=== PATIENT | male | born 1940 | race Caucasian/White ===

== ENCOUNTER 2016-10-15 14:43 | Outpatient (CLI) | payer MEDICARE | END 2016-10-15 14:44 | disposition home or self-care (01) | DX: E23.0 Hypopituitarism (principal) ==

== ENCOUNTER 2016-11-15 11:17 | Outpatient (CLI) | payer MEDICARE | END 2016-11-15 11:18 | disposition home or self-care (01) | DX: E23.0 Hypopituitarism (principal) ==

== ENCOUNTER 2016-12-28 09:03 | Observation (INO) | payer MEDICARE ==
[2016-12-28] MEDS ORDERED: ASPIRIN CHEW 81 MG TABLET PO STA (13:51)
[2016-12-28] MEDS ORDERED: ASPIRIN CHEW 81 MG TABLET ONE (14:01)
[2016-12-28] MEDS ORDERED: HYDROcod/ACETAM 10 MG/325 MG TABLET PO PRN (16:41)
[2016-12-28] MEDS ORDERED: ACETAMINOPHEN 325 MG TABLET PO PRN (16:41)
[2016-12-28] MEDS ORDERED: ONDANSETRON ODT 4 MG TABLET TL PRN (16:41)
[2016-12-28] MEDS ORDERED: SODIUM CHLORIDE FLUSH 0.9% 10 ML SYRINGE IVP PRN (16:41)
[2016-12-28] MEDS ORDERED: GADOBUTROL 7.5 MMOL/7.5 ML VIAL IVP ONE (17:47)
[2016-12-28] MEDS: SODIUM CHLORIDE 0.9% 1,000 ML IV SCH (18:12)
[2016-12-28] MEDS ORDERED: FAMOTIDINE 20 MG TABLET PO SCH (21:00)
[2016-12-28] MEDS: SODIUM CHLORIDE FLUSH 0.9% 10 ML SYRINGE IVP SCH (22:09)
[2016-12-29] MEDS: SODIUM CHLORIDE 0.9% 1,000 ML IV SCH (04:00)
[2016-12-29] MEDS: SODIUM CHLORIDE FLUSH 0.9% 10 ML SYRINGE IVP SCH (05:58)
[2016-12-29] MEDS ORDERED: LEVOTHYROXINE 125 MCG TABLET PO SCH ×2 (07:00→09:00)
[2016-12-29] MEDS ORDERED: HYDROCORTISONE 10 MG TABLET PO SCH (08:00)
[2016-12-29] MEDS ORDERED: MULTIVITAMIN TABLET PO SCH (08:00)
[2016-12-29] MEDS ORDERED: ENOXAPARIN 40 MG/0.4 ML SYRINGE SUBQ SCH (09:00)
[2016-12-29] MEDS ORDERED: POLYETHYLENE GLYCOL 3350 17 GM PACKET PO SCH (09:00)
[2016-12-29] MEDS ORDERED: LOSARTAN 50 MG TABLET PO SCH (09:00)
[2016-12-29] MEDS ORDERED: MULTIVITAMIN PO SCH (09:00)
== END 2016-12-29 09:30 | disposition home or self-care (01) ==
DX: E05.80 Other thyrotoxicosis without thyrotoxic crisis or storm (principal); T38.1X5A Adverse effect of thyroid hormones and substitutes, initial encounter; E27.40 Unspecified adrenocortical insufficiency; R42 Dizziness and giddiness; E86.0 Dehydration; E87.6 Hypokalemia; E03.9 Hypothyroidism, unspecified; I15.2 Hypertension secondary to endocrine disorders; E78.5 Hyperlipidemia, unspecified; M15.9 Polyosteoarthritis, unspecified; F32.9 Major depressive disorder, single episode, unspecified; F17.211 Nicotine dependence, cigarettes, in remission; Z85.820 Personal history of malignant melanoma of skin; Z92.21 Personal history of antineoplastic chemotherapy; Z92.3 Personal history of irradiation; Z79.899 Other long term (current) drug therapy; Z87.898 Personal history of other specified conditions
CPT/HCPCS: 36415; 70450; 70553; 71020; 76536; 80053; 81003; 82533; 83690; 83735; 84403; 84443; 84484; 85025; 85610; 85730; 93005; 93010; 93880; 99285; A9270; A9585; G0378

== ENCOUNTER 2017-07-18 12:45 | Outpatient (CLI) | payer MEDICARE ==
[2017-07-18 13:03] LABS: HCT - HEMATOCRIT 39.4 % (42.0-52.0); HGB - HEMOGLOBIN 13.4 g/dL (14.0-18.0)
[2017-07-18 14:45] LABS: PSA TOTAL 2.4 ng/mL (0.000-2.000)
== END 2017-07-18 12:46 | disposition home or self-care (01) ==
LOC: LAB 12:45
PROVIDERS: ATTEND Internal Medicine Endocrinology, Diabetes & Metabolism
DX: E29.1 Testicular hypofunction (principal)
CPT/HCPCS: 36415; 84153; 84403; 85014; 85018

== ENCOUNTER 2017-10-01 13:04 | Outpatient (CLI) | payer MEDICARE ==
[2017-10-01 13:42] LABS: BASOPHILS # (AUTO) 0.1 10^3/uL (0.0-0.1); BASOPHILS % (AUTO) 0.8 %; EOSINOPHILS # (AUTO) 0.1 10^3/uL (0.0-0.7); EOSINOPHILS % (AUTO) 1.6 %; HGB - HEMOGLOBIN 13.9 g/dL (14.0-18.0); LYMPHOCYTES % (AUTO) 29.5 %; MEAN CORPUSCULAR HEMOGLOBIN 32.5 pg (27.0-31.0); MEAN CORPUSCULAR HGB CONC 34.6 g/dL (32.0-36.0); MEAN CORPUSCULAR VOLUME 93.8 fL (80.0-94.0); MEAN PLATELET VOLUME 6.8 fL (7.4-11.4); MONOCYTES # (AUTO) 0.4 10^3/uL (0.0-1.0); MONOCYTES % (AUTO) 5.9 %; NEUTROPHILS # (AUTO) 4.2 10^3/uL (1.5-6.6); NEUTROPHILS % (AUTO) 62.2 %; PLT - PLATELET COUNT 174 10^3/uL (130-450); RED BLOOD COUNT 4.27 10^6/uL (4.70-6.10); RED CELL DISTRIBUTION WIDTH 13.5 % (12.0-15.0); WHITE BLOOD COUNT 6.8 x10^3/uL (4.8-10.8)
[2017-10-01 14:22] LABS: CALCIUM 8.9 mg/dL (8.5-10.3)
[2017-10-01 14:36] LABS: PSA TOTAL 2.29 ng/mL (0.000-2.000)
[2017-10-01 14:40] LABS: THYROID STIMULATING HORMONE < 0.08 uIU/mL (0.34-5.60)
[2017-10-01 14:43] LABS: FREE T4 (FREE THYROXINE) 1.25 ng/dL (0.58-1.64)
== END 2017-10-01 13:05 | disposition home or self-care (01) ==
LOC: LAB 13:04
PROVIDERS: ATTEND Internal Medicine Endocrinology, Diabetes & Metabolism
DX: E23.0 Hypopituitarism (principal)
CPT/HCPCS: 36415; 80048; 84153; 84403; 84439; 84443; 85025

== ENCOUNTER 2018-01-06 11:04 | Outpatient (CLI) | payer MEDICARE ==
[2018-01-06 11:53] LABS: BASOPHILS # (AUTO) 0.1 10^3/uL (0.0-0.1); BASOPHILS % (AUTO) 0.9 %; EOSINOPHILS # (AUTO) 0.2 10^3/uL (0.0-0.7); EOSINOPHILS % (AUTO) 3.7 %; HGB - HEMOGLOBIN 14.1 g/dL (14.0-18.0); LYMPHOCYTES # (AUTO) 3.5 10^3/uL (1.5-3.5); LYMPHOCYTES % (AUTO) 55.8 %; MEAN CORPUSCULAR HEMOGLOBIN 32.4 pg (27.0-31.0); MEAN CORPUSCULAR VOLUME 95.4 fL (80.0-94.0); MEAN PLATELET VOLUME 6.9 fL (7.4-11.4); MONOCYTES # (AUTO) 0.4 10^3/uL (0.0-1.0); MONOCYTES % (AUTO) 6.5 %; NEUTROPHILS # (AUTO) 2.1 10^3/uL (1.5-6.6); NEUTROPHILS % (AUTO) 33.1 %; PLT - PLATELET COUNT 175 10^3/uL (130-450); RED BLOOD COUNT 4.36 10^6/uL (4.70-6.10); RED CELL DISTRIBUTION WIDTH 13.7 % (12.0-15.0); WHITE BLOOD COUNT 6.2 x10^3/uL (4.8-10.8)
[2018-01-06 12:58] LABS: THYROID STIMULATING HORMONE < 0.08 uIU/mL (0.34-5.60)
[2018-01-06 13:00] LABS: FREE T4 (FREE THYROXINE) 1.35 ng/dL (0.58-1.64)
== END 2018-01-06 11:05 | disposition home or self-care (01) ==
LOC: LAB 11:04
PROVIDERS: ATTEND Internal Medicine Endocrinology, Diabetes & Metabolism
DX: E23.0 Hypopituitarism (principal)
CPT/HCPCS: 36415; 84439; 84443; 85025

== ENCOUNTER 2018-01-21 10:20 | Emergency (ER) | payer MEDICARE ==
[2018-01-21 12:05] LABS: BASOPHILS % (AUTO) 0.7 %; EOSINOPHILS # (AUTO) 0.2 10^3/uL (0.0-0.7); EOSINOPHILS % (AUTO) 3.4 %; HGB - HEMOGLOBIN 13.8 g/dL (14.0-18.0); LYMPHOCYTES # (AUTO) 3.1 10^3/uL (1.5-3.5); LYMPHOCYTES % (AUTO) 50.5 %; MEAN CORPUSCULAR HEMOGLOBIN 32.6 pg (27.0-31.0); MEAN CORPUSCULAR HGB CONC 34.7 g/dL (32.0-36.0); MEAN CORPUSCULAR VOLUME 94.2 fL (80.0-94.0); MEAN PLATELET VOLUME 6.9 fL (7.4-11.4); MONOCYTES # (AUTO) 0.4 10^3/uL (0.0-1.0); MONOCYTES % (AUTO) 7.1 %; NEUTROPHILS # (AUTO) 2.3 10^3/uL (1.5-6.6); NEUTROPHILS % (AUTO) 38.3 %; PLT - PLATELET COUNT 170 10^3/uL (130-450); RED BLOOD COUNT 4.21 10^6/uL (4.70-6.10); RED CELL DISTRIBUTION WIDTH 13.7 % (12.0-15.0); WHITE BLOOD COUNT 6.1 x10^3/uL (4.8-10.8)
--- NOTE | 2018-01-21 12:11 | ED Physician Documentation ---
PD HPI HEENT - Stated complaint Stated Complaint: VERTIGO - Chief complaint Chief Complaint: General - History obtained from History obtained from: Patient - History of Present Illness Timing - onset: Today (had some brief feeling of vertigo when getting up from bed the past couple of days. Today he looked down and then up suddenly and felt abrupt onset of severe vertigo which persisted. He did not have headache and no other symptoms. Does have history of Melanoma without mets. No tinnitus.) Timing - details: Abrupt onset, Still present (lessened with holding still, worse with head movement.), Waxing and waning Location: No: Right ear, Left ear, Throat Associated symptoms: Congestion (some mild congestion seasonally). No: Fever, Rhinorrhea, Facial swelling Similar symptoms before: Has not had sx before Recently seen: Not recently seen Review of Systems Constitutional: denies: Fever Eyes: denies: Loss of vision, Decreased vision Ears: denies: Loss of hearing, Ear pain, Drainage/discharge, Tinnitus/ringing Nose: reports: Congestion, Sinus pressure / pain (mild). denies: Rhinorrhea / runny nose Throat: denies: Sore throat Cardiac: denies: Chest pain / pressure, Palpitations Respiratory: denies: Dyspnea, Cough GI: reports: Nausea (with the marked vertigo, but lessened now), Vomiting. 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 ) GI: None : None HEENT: None Psych: Depression Musculoskeletal: Osteoarthritis Derm: Other (melanoma in the past, with local extension beyond margins and had chemo for it. ) - Past Surgical History Past Surgical History: Yes General: Colonoscopy HEENT: Tonsil/Adenoidectomy Derm: Skin cancer surgery - Present Medications Home Medications: Ambulatory Orders Medication Instructions Recorded Confirmed Multivitamin [Multivitamins] 1 cap PO DAILY 05/10/15 10/01/17 Testosterone 5 gm TD ONCE 10/02/16 10/01/17 Cholecalciferol [Vitamin D3] 1 tab ORAL DAILY 12/28/16 10/01/17 Hydrocortisone [Cortef] 20 mg PO DAILYWM tablet 12/29/16 10/01/17 Levothyroxine [Synthroid] 112 mcg PO QDAC #30 tablet NS 12/29/16 10/01/17 Dexamethasone [Decadron] 4 mg PO DAILY #5 tablet 01/21/18 Meclizine [Antivert] 25 mg PO Q6H PRN #30 tablet 01/21/18 - Allergies Allergies/Adverse Reactions: Allergies Allergy/AdvReac Type Severity Reaction Status Date / Time No Known Drug Allergies Allergy Verified 01/21/18 10:40 - Social History Does the pt smoke?: No Smoking Status: Never smoker Does the pt drink ETOH?: Yes Does the pt have substance abuse?: No - Immunizations Immunizations are current?: Yes - POLST Patient has POLST: No PD ED PE NORMAL - Vitals Vital signs reviewed: Yes - General General: Alert and oriented X 3, No acute distress, Well developed/nourished - HEENT HEENT: Atraumatic, PERRL, EOMI (with some nystagmus to the right), Ears normal, Moist mucous membranes, Pharynx benign - Neck Neck: Supple, no meningeal sign, No bony TTP, No adenopathy, No JVD, No bruit - Cardiac Cardiac: RRR, No murmur - Respiratory Respiratory: Clear bilaterally - Abdomen Abdomen: Soft, Non tender - Back Back: No CVA TTP - Derm Derm: Normal color, Warm and dry, No rash - Extremities Extremities: No tenderness to palpate, Normal ROM s pain - Neuro Neuro: Alert and oriented X 3, 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, No motor deficit, No sensory deficit, Normal speech, Other Eye Opening: Spontaneous Motor: Obeys Commands Verbal: Oriented GCS Score: 15 Results - Vitals Vitals: Vital Signs - 24 hr 01/21/18 01/21/18 01/21/18 12:56 15:50 17:50 Temperature 36.6 C Heart Rate 59 L 70 84 Respiratory 16 18 18 Rate Blood Pressure 140/77 H 157/88 H 156/88 H O2 Saturation 100 100 99 Oxygen O2 Source Room air - Labs Labs: Laboratory Tests 01/21/18 01/21/18 01/21/18 11:48 11:57 11:57 WBC 6.1 RBC 4.21 L Hgb 13.8 L Hct 39.7 L MCV 94.2 H MCH 32.6 H MCHC 34.7 RDW 13.7 Plt Count 170 MPV 6.9 L Neut # 2.3 Lymph # 3.1 [place] # 0.4 Eos # 0.2 Baso # 0.0 Absolute Nucleated RBC 0.00 Nucleated RBC % 0.1 Sodium 139 Potassium 4.0 Chloride 105 Carbon Dioxide 28 Anion Gap 6.0 BUN 19 Creatinine 0.9 Estimated GFR (MDRD) 82 L Glucose 89 Calcium 8.6 Phosphorus 2.7 Magnesium 2.1 Total Bilirubin 0.9 AST 25 ALT 19 Alkaline Phosphatase 65 Total Protein 6.3 L Albumin 3.8 Globulin 2.5 Albumin/Globulin Ratio 1.5 Lipase 27 Urine Color YELLOW Urine Clarity CLEAR Urine pH 5.5 Ur Specific Benedict 1.020 Urine Protein NEGATIVE Urine Glucose (UA) NEGATIVE Urine Ketones NEGATIVE Urine Occult Blood NEGATIVE Urine Nitrite NEGATIVE Urine Bilirubin NEGATIVE Urine Urobilinogen 0.2 (NORMAL) Ur Leukocyte Esterase NEGATIVE Ur Microscopic Review NOT INDICATED Urine Culture Comments NOT INDICATED PD MEDICAL DECISION MAKING - ED course Complexity details: re-evaluated patient (long wait for MRI but was important as CT would not have excluded intracranial pathology in posterior fossa/ cerebellum area. MRI was good, so confirmed peripheral vertigo. ), considered differential (seems likely peripheral vertigo but does have history of melanoma and mets would be concern, as would posterior CVA, for which MRI would be the most accurate. ), d/w patient Departure - Departure Disposition: 01 Home, Self Care Clinical Impression: Dizziness Vertigo, peripheral Qualifiers: Laterality: unspecified laterality Qualified Code(s): H81.399 - Other peripheral vertigo, unspecified ear Clinical Impression: (Ruled Out): Intracranial mass Condition: Stable Record reviewed to determine appropriate education?: Yes Instructions: ED Vertigo Unspecified Follow-Up: Milton Leigh MD [Primary Care Provider] - Prescriptions: Dexamethasone [Decadron] 4 mg PO DAILY #5 tablet Meclizine [Antivert] 25 mg PO Q6H PRN #30 tablet PRN Reason: Vertigo Comments: Your brain MRI is normal so no signs of stroke, tumors, bleeding, other abnormalities. This reinforces that the vertigo is from the inner ear. Use Decadron anti-inflammatory for the next several days for presumed inflammation of the inner ear. Add meclizine every 6 hours if needed for dizziness itself which is a motion sickness medicine. Recheck if not improving over the next few days. Discharge Date/Time: 01/21/18 18:01
[2018-01-21 12:21] LABS: ALBUMIN 3.8 g/dL (3.2-5.5); ALBUMIN/GLOBULIN RATIO 1.5 (1.0-2.2); BILIRUBIN,TOTAL 0.9 mg/dL (0.2-1.0); CALCIUM 8.6 mg/dL (8.5-10.3); CREATININE 0.9 mg/dL (0.6-1.2); MAGNESIUM 2.1 mg/dL (1.7-2.8); PHOSPHORUS 2.7 mg/dL (2.5-4.6); TOTAL PROTEIN 6.3 g/dL (6.7-8.2)
[2018-01-21 12:34] LABS: BILIRUBIN,URINE NEGATIVE (NEGATIVE); GLUCOSE, URINE (UA) NEGATIVE (NEGATIVE); KETONES,URINE (UA) NEGATIVE (NEGATIVE); LEUKOCYTE ESTERASE, URINE NEGATIVE (NEGATIVE); NITRITE,URINE NEGATIVE (NEGATIVE); OCCULT BLOOD,URINE NEGATIVE (NEGATIVE); PH,URINE 5.5 PH (5.0-7.5); PROTEIN,URINE NEGATIVE (NEGATIVE); UROBILINOGEN,URINE 0.2 (NORMAL) E.U./dL (NORMAL)
[2018-01-21 12:39] LABS: CLARITY,URINE CLEAR (CLEAR)
[2018-01-21] MEDS ORDERED: GADOBUTROL 7.5 MMOL/7.5 ML SYRINGE ONE (16:28)
[2018-01-21] MEDS ORDERED: GADOBUTROL 7.5 MMOL/7.5 ML SYRINGE IVP ONE (17:02)
--- NOTE | 2018-01-21 17:33 | MRI Report ---
EXAM: MRI BRAIN WITHOUT AND WITH CONTRAST EXAM DATE: 01/21/2018 05:13 PM. CLINICAL HISTORY: 77-year-old man with acute onset of vertigo today. Patient also has history of rina noma. COMPARISON: MRI on 12/28/2016. TECHNIQUE: Multiplanar, multisequence T1-weighted and fluid-sensitive MR sequences of the brain were performed. Sequences optimized for routine evaluation. Other: High-resolution axial images were acqui red through the internal auditory canals. IV Contrast: 7.5ML GADAVIST. FINDINGS: Parenchyma: No evidence of acute infarct on diffusion weighted sequence. The parenchyma demonstrates mild to moderate burden of nonspecific FLAIR hyperintensities in the deep cerebral and periventricula r white matter, similar to the 12/28/2016 MRI. The infratentorial parenchyma demonstrates normal sign al intensity on T1 and T2-weighted sequences. No evidence of prior hemorrhage on susceptibility weigh jaquelin sequence. No abnormal enhancement. Pituitary: Unremarkable. Ventricles and Extra-axial Spaces: Ventricles are symmetric and normal in size for age. Extra-axial s paces are unremarkable. No abnormal enhancement. Internal Auditory Canals: Patent without mass lesion or abnormal enhancement bilaterally. Cochleas an d vestibular apparatuses demonstrate normal fluid signal intensity without abnormal enhancement. No e vidence of semicircular canal dehiscence. Orbits: Unremarkable except for bilateral lens replacement surgery. Sinuses: Paranasal sinuses and mastoid air cells are clear. Major Vascular Flow Voids: Intact. Dural Venous Sinuses and Major Central Veins: Patent on post-contrast images. IMPRESSION: 1. No acute intracranial abnormality. Specifically, no evidence of acute infarct, hemorrhage, or mass lesion. No abnormal enhancement or hemorrhage to suggest metastatic disease. 2. 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 [facility] Referring Provider Line: [phone] SITE ID: [id number]
[2018-01-21 17:55] VITALS: BP 156/88
== END 2018-01-21 18:01 | disposition home or self-care (01) ==
LOC: ED 10:20
DX: H81.399 Other peripheral vertigo, unspecified ear (principal); I10 Essential (primary) hypertension; Z85.820 Personal history of malignant melanoma of skin
CPT/HCPCS: 36415; 70553; 80053; 81003; 83690; 83735; 84100; 85025; 93005; 99283; 99284; A9585; 81001; 87086

== ENCOUNTER 2018-07-06 13:15 | Emergency (ER) | payer MEDICARE ==
--- NOTE | 2018-07-06 14:02 | ED Physician Documentation ---
PD HPI DYSPNEA - Stated complaint Stated Complaint: SOA - Chief complaint Chief Complaint: Resp - History obtained from History obtained from: Patient, Family - History of Present Illness Timing - onset: Last night Timing - onset during: Sleep Timing - duration: Hours Timing - details: Abrupt onset, Still present Inciting event(s): Immobilization/travel Improved by: Rest Worsened by: Exertion Associated symptoms: Cough. 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 He was asleep last night when he was suddenly awakened by a flash of light and felt short of breath. He states that since that time he has been able to only sleep intermittently tossing and turning and when he is up and around he feels fatigued easily. He denies acute exertional dyspnea. Review of Systems Constitutional: denies: Fever Eyes: denies: Decreased vision Ears: denies: Ear pain Nose: denies: Rhinorrhea / runny nose, Congestion Throat: denies: Sore throat Cardiac: reports: Pedal edema (on right as usual). denies: Chest pain / pressure, Palpitations, Calf pain Respiratory: reports: Dyspnea, Cough. 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 ) GI: None : None HEENT: None Psych: Depression Musculoskeletal: Osteoarthritis Derm: Other (melanoma in the past, with local extension beyond margins and had chemo for it. ) - Past Surgical History Past Surgical History: Yes General: Colonoscopy HEENT: Tonsil/Adenoidectomy Derm: Skin cancer surgery - Present Medications Home Medications: Ambulatory Orders Medication Instructions Recorded Confirmed Multivitamin [Multivitamins] 1 cap PO DAILY 05/10/15 10/01/17 Testosterone 5 gm TD ONCE 10/02/16 10/01/17 Cholecalciferol [Vitamin D3] 1 tab ORAL DAILY 12/28/16 10/01/17 Hydrocortisone [Cortef] 20 mg PO DAILYWM tablet 12/29/16 10/01/17 Levothyroxine [Synthroid] 112 mcg PO QDAC #30 tablet NS 12/29/16 10/01/17 Aspirin 81 mg 07/06/18 - Allergies Allergies/Adverse Reactions: Allergies Allergy/AdvReac Type Severity Reaction Status Date / Time No Known Drug Allergies Allergy Verified 07/06/18 13:26 - Social History Does the pt smoke?: No Smoking Status: Never smoker Does the pt drink ETOH?: Yes Does the pt have substance abuse?: No - Immunizations Immunizations are current?: Yes - POLST Patient has POLST: No PD ED PE NORMAL - Vitals Vital signs reviewed: Yes (hypertensive mild ) - General General: Alert and oriented X 3, No acute distress, Well developed/nourished - HEENT HEENT: Atraumatic, PERRL, EOMI - Neck Neck: Supple, no meningeal sign - Cardiac Cardiac: RRR, No murmur - Respiratory Respiratory: No respiratory distress, Clear bilaterally - Abdomen Abdomen: Soft, Non tender - Back Back: No CVA TTP, No spinal TTP - Derm Derm: Normal color, Warm and dry, No rash - Extremities Extremities: No deformity, Other (There are scars to the right LE above and below the medial aspect of the knee where prior melanoma has been removed. There is no palpable cord and no pain to dorsiflexion of the foot . The right leg is slightly swollen in comparison to the left. 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, No motor deficit, No sensory deficit, Normal speech Eye Opening: Spontaneous Motor: Obeys Commands Verbal: Oriented GCS Score: 15 - Psych Psych: Normal mood, Normal affect Results - Vitals Vitals: Vital Signs - 24 hr 07/06/18 07/06/18 13:24 15:02 Temperature 36.8 C Heart Rate 78 75 Respiratory 18 16 Rate Blood Pressure 159/82 H 164/91 H O2 Saturation 100 100 Oxygen O2 Source Room air - Labs Labs: Laboratory Tests 07/06/18 07/06/18 07/06/18 14:10 14:10 14:10 WBC 6.7 RBC 3.86 L Hgb 12.8 L Hct 36.2 L MCV 93.8 MCH 33.3 H MCHC 35.5 RDW 13.4 Plt Count 154 MPV 6.4 L Neut # (Auto) 4.2 Lymph # (Auto) 1.6 [place] # (Auto) 0.5 Eos # (Auto) 0.3 Baso # (Auto) 0.1 Absolute Nucleated RBC 0.00 Nucleated RBC % 0.0 Sodium 136 Potassium 3.4 L Chloride 101 Carbon Dioxide 26 Anion Gap 9.0 BUN 23 H Creatinine 1.0 Estimated GFR (MDRD) 73 L Glucose 107 H Calcium 8.6 Total Bilirubin 0.8 AST 27 ALT 17 Alkaline Phosphatase 86 Troponin I < 0.04 B-Natriuretic Peptide Total Protein 6.4 L Albumin 3.8 Globulin 2.6 Albumin/Globulin Ratio 1.5 Lipase 33 07/06/18 14:10 WBC RBC Hgb Hct MCV MCH MCHC RDW Plt Count MPV Neut # (Auto) Lymph # (Auto) [place] # (Auto) Eos # (Auto) Baso # (Auto) Absolute Nucleated RBC Nucleated RBC % Sodium Potassium Chloride Carbon Dioxide Anion Gap BUN Creatinine Estimated GFR (MDRD) Glucose Calcium Total Bilirubin AST ALT Alkaline Phosphatase Troponin I B-Natriuretic Peptide 146 H Total Protein Albumin Globulin Albumin/Globulin Ratio Lipase - Rads (name of study) CT angio chest Radiology: Prelim report reviewed (Impression: 1. Negative for acute pulmonary embolism. 2 Clear lungs. 3 No other significant acute abnormality in the chest.), EMP read indepedently, See rad report PD MEDICAL DECISION MAKING - ED course Complexity details: reviewed old records, reviewed results, re-evaluated patient, considered differential, d/w patient ED course: 77-year-old male with a recent right hip replacement has developed a sudden episode last night with persistent sensation of shortness of breath at rest and on examination the patient appears well and a CT Nora of the chest is without evidence of abnormality within the chest. The patient is reassured at the bedside and is discharged home. Departure - Departure Disposition: Home, Self Care Clinical Impression: Dyspnea Qualifiers: Dyspnea type: other forms of dyspnea Qualified Code(s): R06.09 - Other forms of dyspnea Condition: Stable Instructions: ED Dyspnea Shortness of Breath Follow-Up: Raymundo Ann MD [Primary Care Provider] - Comments: Today the diagnostics run are all normal. Specifically the exam of the chest is without abnormality on a detailed image.
[2018-07-06 14:16] LABS: BASOPHILS # (AUTO) 0.1 10^3/uL (0.0-0.1); BASOPHILS % (AUTO) 0.8 %; EOSINOPHILS # (AUTO) 0.3 10^3/uL (0.0-0.7); EOSINOPHILS % (AUTO) 4.8 %; HGB - HEMOGLOBIN 12.8 g/dL (14.0-18.0); LYMPHOCYTES # (AUTO) 1.6 10^3/uL (1.5-3.5); LYMPHOCYTES % (AUTO) 24.4 %; MEAN CORPUSCULAR HEMOGLOBIN 33.3 pg (27.0-31.0); MEAN CORPUSCULAR HGB CONC 35.5 g/dL (32.0-36.0); MEAN CORPUSCULAR VOLUME 93.8 fL (80.0-94.0); MEAN PLATELET VOLUME 6.4 fL (7.4-11.4); MONOCYTES # (AUTO) 0.5 10^3/uL (0.0-1.0); MONOCYTES % (AUTO) 6.8 %; NEUTROPHILS # (AUTO) 4.2 10^3/uL (1.5-6.6); NEUTROPHILS % (AUTO) 63.2 %; PLT - PLATELET COUNT 154 10^3/uL (130-450); RED BLOOD COUNT 3.86 10^6/uL (4.70-6.10); RED CELL DISTRIBUTION WIDTH 13.4 % (12.0-15.0); WHITE BLOOD COUNT 6.7 x10^3/uL (4.8-10.8)
[2018-07-06] MEDS ORDERED: IOPAMIDOL-300 100 ML VIAL ONE (14:19)
[2018-07-06 14:28] LABS: ALBUMIN 3.8 g/dL (3.2-5.5); ALBUMIN/GLOBULIN RATIO 1.5 (1.0-2.2); BILIRUBIN,TOTAL 0.8 mg/dL (0.2-1.0); CALCIUM 8.6 mg/dL (8.5-10.3); TOTAL PROTEIN 6.4 g/dL (6.7-8.2)
--- NOTE | 2018-07-06 15:28 | CT Report ---
Reason: sudden soa after hip surgery Procedure Date: 07/06/2018 Accession Number: [id number] / [id number] Procedure: CT - Chest Angio (PE) CPT Code: FULL RESULT: EXAM: CT ANGIOGRAM CHEST EXAM DATE: 07/06/2018 02:42 PM. CLINICAL HISTORY: Sudden soa after hip surgery. COMPARISON: None. TECHNIQUE: Routine helical imaging was performed through the chest in the pulmonary arterial phase. IV Contrast: ISOVUE 300 80mL. Reconstructions: Coronal 3-D MIP reconstructions.Sagittal and coronal. In accordance with CT protocol optimization, one or more of the following dose reduction techniques were utilized for this exam: automated exposure control, adjustment of mA and/or KV based on patient size, or use of iterative reconstructive technique. FINDINGS: Pulmonary Arteries: Diagnostic quality: Adequate through the segmental arteries. Negative for acute pulmonary embolism to the segmental level. The main pulmonary artery is normal in size. Lungs/Pleura: Patient is breathing during image acquisition. There is no consolidation or mass. No suspicious nodule. Trachea and central airways appear normal in caliber. Negative for pleural effusion. Mediastinum: Heart size is normal. Negative for pericardial effusion. Thoracic Aorta: No thoracic aortic aneurysm. Upper Abdomen: Unremarkable. Other: None. IMPRESSION: 1. Negative for acute pulmonary embolism. 2. Clear lungs. 3. No other significant acute abnormality in the chest. [facility]
[2018-07-06] MEDS ORDERED: IOPAMIDOL-300 100 ML VIAL IVP ONE ×2 (15:31→15:33)
[2018-07-06 15:52] VITALS: BP 159/90
== END 2018-07-06 15:56 | disposition home or self-care (01) ==
LOC: ED 13:15
DX: R06.00 Dyspnea, unspecified (principal); I10 Essential (primary) hypertension; Z85.820 Personal history of malignant melanoma of skin; Z96.641 Presence of right artificial hip joint
CPT/HCPCS: 36415; 71275; 80053; 83690; 83880; 84484; 85025; 93005; 99283; 99284; Q9967

== ENCOUNTER 2019-01-18 12:05 | Emergency (ER) | payer MEDICARE ==
[2019-01-18] MEDS ORDERED: SODIUM CHLORIDE 0.9% 1,000 ML IV ONE (13:20)
[2019-01-18] MEDS ORDERED: LORazepam 2 MG/ML VIAL IVP STA (13:20)
[2019-01-18] MEDS ORDERED: LACTATED RINGERS 1,000 ML IV STA (13:20)
--- NOTE | 2019-01-18 13:22 | ED Physician Documentation ---
History of Present Illness - Stated complaint Stated Complaint: DIZZY/DRINK TOO MUCH ALCOHOL - Chief complaint Chief Complaint: General - History obtained from History obtained from: Patient - History of Present Illness Timing: Other (He drank heavily 2 nights ago. Yesterday he slept all day, was drinking some water but was not really eating or eating much. He developed diarrhea and is vertiginous. He denies any pain or nausea. 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 ) GI: None : None HEENT: None Psych: Depression Musculoskeletal: Osteoarthritis Derm: Other (melanoma in the past, with local extension beyond margins and had chemo for it. ) - Past Surgical History Past Surgical History: Yes General: Colonoscopy Ortho: Hip replacement HEENT: Tonsil/Adenoidectomy Derm: Skin cancer surgery - Present Medications Home Medications: Ambulatory Orders Medication Instructions Recorded Confirmed Testosterone 5 gm TD ONCE 10/02/16 01/18/19 Hydrocortisone [Cortef] 20 mg PO DAILYWM tablet 12/29/16 01/18/19 Levothyroxine [Synthroid] 112 mcg PO QDAC #30 tablet NS 12/29/16 01/18/19 - Allergies Allergies/Adverse Reactions: Allergies Allergy/AdvReac Type Severity Reaction Status Date / Time No Known Drug Allergies Allergy Verified 01/18/19 12:14 - Social History Does the pt smoke?: No Smoking Status: Never smoker Does the pt drink ETOH?: Yes Does the pt have substance abuse?: No - Immunizations Immunizations are current?: Yes - POLST Patient has POLST: No PD ED PE NORMAL - Vitals Vital signs reviewed: Yes - General General: Alert and oriented X 3, No acute distress - Cardiac Cardiac: RRR, No murmur - Respiratory Respiratory: No respiratory distress, Clear bilaterally - Abdomen Abdomen: Soft, Non tender - Derm Derm: Normal color, Warm and dry - Extremities Extremities: No edema, No calf tenderness / cord - Neuro Neuro: Alert and oriented X 3, Normal speech - Psych Psych: Normal mood, Normal affect Results - Vitals Vitals: Vital Signs - 24 hr 05/12/19 05/12/19 12:10 13:22 Temperature 36.9 C Heart Rate 60 78 Respiratory 16 20 Rate Blood Pressure 106/63 121/76 O2 Saturation 98 95 Oxygen O2 Source Room air - Labs Labs: Laboratory Tests 01/18/19 13:40 Sodium 136 Potassium 3.5 Chloride 98 L Carbon Dioxide 22 Anion Gap 16.0 H BUN 25 H Creatinine 1.4 H Estimated GFR (MDRD) 49 L Glucose 97 Calcium 8.9 Magnesium 2.0 Total Bilirubin 1.6 H AST 32 ALT 21 Alkaline Phosphatase 66 Total Protein 6.7 Albumin 3.7 Globulin 3.0 Albumin/Globulin Ratio 1.2 Lipase 32 PD MEDICAL DECISION MAKING - ED course ED course: He presents with dizziness and dehydration as well as diarrhea after 1 night roland on alcohol. His exam is normal. He felt much better after the administration of IV fluids and a little bit of Ativan Departure - Departure Disposition: 01 Home, Self Care Clinical Impression: Dizziness, Dehydration Condition: Good Record reviewed to determine appropriate education?: Yes Instructions: ED Dizziness UKO, ED Dehydration Comments: Avoid drinking alcohol especially to excess. Follow-up with your doctor, next available appointment. Return for new or worsening symptoms.
[2019-01-18 14:01] LABS: ALBUMIN 3.7 g/dL (3.2-5.5); ALBUMIN/GLOBULIN RATIO 1.2 (1.0-2.2); BILIRUBIN,TOTAL 1.6 mg/dL (0.2-1.0); CALCIUM 8.9 mg/dL (8.5-10.3); CREATININE 1.4 mg/dL (0.6-1.2); TOTAL PROTEIN 6.7 g/dL (6.7-8.2)
[2019-01-18 15:30] VITALS: BP 169/83
== END 2019-01-18 15:56 | disposition home or self-care (01) ==
LOC: ED 12:05
DX: E86.0 Dehydration (principal); R42 Dizziness and giddiness; I10 Essential (primary) hypertension; E03.9 Hypothyroidism, unspecified; E23.1 Drug-induced hypopituitarism; T45.1X5D Adverse effect of antineoplastic and immunosuppressive drugs, subsequent encounter; M19.90 Unspecified osteoarthritis, unspecified site; F32.9 Major depressive disorder, single episode, unspecified; Z85.820 Personal history of malignant melanoma of skin; Z72.89 Other problems related to lifestyle
CPT/HCPCS: 36415; 80053; 83690; 83735; 96361; 96374; 99283; 99284; J2060; J7120

== ENCOUNTER 2019-02-17 11:37 | Outpatient (CLI) | payer MEDICARE ==
[2019-02-17 12:02] LABS: BASOPHILS # (AUTO) 0.1 10^3/uL (0.0-0.1); BASOPHILS % (AUTO) 0.8 %; EOSINOPHILS # (AUTO) 0.2 10^3/uL (0.0-0.7); EOSINOPHILS % (AUTO) 2.5 %; HGB - HEMOGLOBIN 13.1 g/dL (14.0-18.0); LYMPHOCYTES # (AUTO) 2.3 10^3/uL (1.5-3.5); LYMPHOCYTES % (AUTO) 32.8 %; MEAN CORPUSCULAR HEMOGLOBIN 32.6 pg (27.0-31.0); MEAN CORPUSCULAR HGB CONC 34.3 g/dL (32.0-36.0); MEAN PLATELET VOLUME 6.5 fL (7.4-11.4); MONOCYTES # (AUTO) 0.5 10^3/uL (0.0-1.0); MONOCYTES % (AUTO) 6.6 %; NEUTROPHILS % (AUTO) 57.3 %; PLT - PLATELET COUNT 153 10^3/uL (130-450); RED BLOOD COUNT 4.03 10^6/uL (4.70-6.10); RED CELL DISTRIBUTION WIDTH 12.6 % (12.0-15.0)
[2019-02-17 12:15] LABS: CALCIUM 8.9 mg/dL (8.5-10.3)
[2019-02-17 12:36] LABS: PSA TOTAL 1.42 ng/mL (0.000-2.000)
== END 2019-02-17 11:38 | disposition home or self-care (01) ==
LOC: LAB 11:37
PROVIDERS: ATTEND Internal Medicine Endocrinology, Diabetes & Metabolism
DX: E23.0 Hypopituitarism (principal)
CPT/HCPCS: 36415; 80048; 84153; 84403; 84439; 85025

== ENCOUNTER 2019-09-06 10:26 | Emergency (ER) | payer MEDICARE ==
[2019-09-06] MEDS ORDERED: SODIUM CHLORIDE 0.9% 1,000 ML IV ONE (11:00)
[2019-09-06] MEDS ORDERED: HYDROCORTISONE SUCCINATE 100 MG/2 ML VIAL IVP STA (11:00)
[2019-09-06 11:15] LABS: BASOPHILS # (AUTO) 0.1 10^3/uL (0.0-0.1); BASOPHILS % (AUTO) 0.7 %; EOSINOPHILS # (AUTO) 0.1 10^3/uL (0.0-0.7); EOSINOPHILS % (AUTO) 1.9 %; HGB - HEMOGLOBIN 14.1 g/dL (14.0-18.0); LYMPHOCYTES # (AUTO) 3.1 10^3/uL (1.5-3.5); LYMPHOCYTES % (AUTO) 45.8 %; MEAN CORPUSCULAR HGB CONC 34.4 g/dL (32.0-36.0); MEAN PLATELET VOLUME 8.9 fL (7.4-11.4); MONOCYTES # (AUTO) 0.5 10^3/uL (0.0-1.0); MONOCYTES % (AUTO) 7.3 %; PLT - PLATELET COUNT 167 10^3/uL (130-450); RED BLOOD COUNT 4.41 10^6/uL (4.70-6.10); RED CELL DISTRIBUTION WIDTH 13.2 % (12.0-15.0); WHITE BLOOD COUNT 6.7 x10^3/uL (4.8-10.8)
[2019-09-06 11:24] LABS: ALBUMIN 3.8 g/dL (3.2-5.5); ALBUMIN/GLOBULIN RATIO 1.4 (1.0-2.2); BILIRUBIN,TOTAL 1.7 mg/dL (0.2-1.0); CALCIUM 8.2 mg/dL (8.5-10.3); CREATININE 1.2 mg/dL (0.6-1.2); TOTAL PROTEIN 6.6 g/dL (6.7-8.2)
--- NOTE | 2019-09-06 11:37 | XRAY Report ---
Reason: chest pain Procedure Date: 09/06/2019 Accession Number: [id number] / [id number] Procedure: XR - Chest 1 View X-Ray CPT Code: 45340 Final Report FULL RESULT: EXAM: CHEST RADIOGRAPHY EXAM DATE: 09/06/2019 11:21 AM. CLINICAL HISTORY: Chest pain. COMPARISON: CHEST 2 VIEW PA/LAT 12/28/2016 12:52 PM. TECHNIQUE: 1 view. FINDINGS: Lungs/Pleura: No focal opacities evident. No pleural effusion. No pneumothorax. Mediastinum: Within exam limitations, the cardiomediastinal contour is normal. Other: None. IMPRESSION: No acute intrathoracic plain film abnormality. [facility]
[2019-09-06] MEDS ORDERED: HEPARIN 5,000 UNIT/ML VIAL IVP STA (12:17)
[2019-09-06] MEDS ORDERED: ASPIRIN CHEW 81 MG TABLET PO STA (12:17)
[2019-09-06] MEDS ORDERED: HEPARIN 25000UNITS/500ML (D5W) 25,000 UNIT/500 ML BAG IV STA (12:17)
--- NOTE | 2019-09-06 12:27 | ED Physician Documentation ---
History of Present Illness - Stated complaint Stated Complaint: DIZZINESS - Chief complaint Chief Complaint: Neuro - History obtained from History obtained from: Patient - History of Present Illness Timing: How many days ago (2) - Additonal information Additional information: This is a 79-year-old man who had a few drinks days prior to presentation woke up about 130 yesterday with vomiting and was unable to keep anything down. He got up to let the dog out and just felt really dizzy around 7 AM this morning so he went back to bed he checked his blood pressure was 90 systolic over something and he spent all day in bed yesterday. He drove himself here he says very carefully because he was still feeling little bit lightheaded. He never had any chest pain or shortness of breath. No headache numbness or tingling. He has not been ill and denied abdominal pain or diarrhea. His last emesis was yesterday. 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 No prior abdominal surgeries and no prior heart history. Review of Systems Constitutional: denies: Fever Eyes: denies: Loss of vision Ears: denies: Ear pain Nose: denies: Rhinorrhea / runny nose, Congestion Throat: denies: Sore throat Cardiac: denies: Chest pain / pressure, Palpitations Respiratory: denies: Dyspnea, Cough GI: reports: Nausea, Vomiting. denies: Abdominal Pain, Diarrhea : denies: Dysuria Skin: denies: Rash Musculoskeletal: denies: Neck pain, Back pain Neurologic: reports: Generalized weakness, Near syncope. denies: Syncope, Confused, Altered mental status, Headache Endocrine: reports: Other (Pituitary malfunction requires thyroid replacement, hydrocortisone and testosterone) Immunocompromised: reports: Immunocompromised (Chronic steroid use) PD PAST MEDICAL HISTORY - Past Medical History Cardiovascular: Hypertension Respiratory: None Neuro: None Endocrine/Autoimmune: HyPOthyroidism, Other GI: None : None HEENT: None Psych: Depression Musculoskeletal: Osteoarthritis Derm: Other - Past Surgical History Past Surgical History: Yes General: Colonoscopy Ortho: Hip replacement HEENT: Tonsil/Adenoidectomy Derm: Skin cancer surgery - Present Medications Home Medications: Ambulatory Orders Medication Instructions Recorded Confirmed Testosterone 5 gm TD ONCE 10/02/16 01/18/19 Hydrocortisone [Cortef] 20 mg PO DAILYWM tablet 12/29/16 01/18/19 Levothyroxine [Synthroid] 112 mcg PO QDAC #30 tablet NS 12/29/16 01/18/19 - Allergies Allergies/Adverse Reactions: Allergies Allergy/AdvReac Type Severity Reaction Status Date / Time No Known Drug Allergies Allergy Verified 01/18/19 12:14 - Social History Does the pt smoke?: No Smoking Status: Never smoker Does the pt drink ETOH?: Yes Does the pt have substance abuse?: No - Immunizations Immunizations are current?: Yes - POLST Patient has POLST: No PD ED PE NORMAL - Vitals Vital signs reviewed: Yes - General General: Alert and oriented X 3, No acute distress, Well developed/nourished, Other (Very pleasant 79-year-old man. He felt a little lightheaded when I had him sit up to listen to his lungs. 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, No motor deficit, No sensory deficit, Normal speech - Psych Psych: Normal mood, Normal affect Results - Vitals Vitals: Vital Signs - 24 hr 09/06/19 09/06/19 09/06/19 10:29 12:10 14:00 Temperature 36.8 C 37.0 C Heart Rate 70 72 96 Respiratory 18 17 14 Rate Blood Pressure 127/71 145/73 H 144/85 H O2 Saturation 99 99 96 09/06/19 16:00 Temperature 36.6 C Heart Rate 68 Respiratory 14 Rate Blood Pressure 138/81 H O2 Saturation 98 Oxygen O2 Source Room air - EKG (time done) 1038 Rate: Rate (enter#) (65) Rhythm: NSR Intervals: Wide QRS Ischemia: T wave inversion, Non specific changes Other comments: Other comments (There are T wave inversions across the EKG that are quite deep in the anterior leads. This is changed from June 2018.) Compare to prior EKG: Changed from prior EKG - Labs Labs: Laboratory Tests 09/06/19 09/06/19 09/06/19 11:00 11:00 11:00 WBC 6.7 RBC 4.41 L Hgb 14.1 Hct 41.0 L MCV 93.0 MCH 32.0 H MCHC 34.4 RDW 13.2 Plt Count 167 MPV 8.9 Neut # (Auto) 3.0 Lymph # (Auto) 3.1 [place] # (Auto) 0.5 Eos # (Auto) 0.1 Baso # (Auto) 0.1 Absolute Nucleated RBC 0.00 Nucleated RBC % 0.0 Sodium 133 L Potassium 3.4 L Chloride 98 L Carbon Dioxide 26 Anion Gap 9.0 BUN 21 H Creatinine 1.2 Estimated GFR (MDRD) 59 L Glucose 95 Calcium 8.2 L Total Bilirubin 1.7 H AST 30 ALT 16 Alkaline Phosphatase 64 Troponin I High Sens 1259.3 H* Total Protein 6.6 L Albumin 3.8 Globulin 2.8 Albumin/Globulin Ratio 1.4 Lipase 32 Urine Color Urine Clarity Urine pH Ur Specific [place] Urine Protein Urine Glucose (UA) Urine Ketones Urine Occult Blood Urine Nitrite Urine Bilirubin Urine Urobilinogen Ur Leukocyte Esterase Urine RBC Urine WBC Ur Squamous Epith Cells Urine Bacteria Ur Microscopic Review Urine Culture Comments 09/06/19 09/06/19 13:59 14:10 WBC RBC Hgb Hct MCV MCH MCHC RDW Plt Count MPV Neut # (Auto) Lymph # (Auto) [place] # (Auto) Eos # (Auto) Baso # (Auto) Absolute Nucleated RBC Nucleated RBC % Sodium Potassium Chloride Carbon Dioxide Anion Gap BUN Creatinine Estimated GFR (MDRD) Glucose Calcium Total Bilirubin AST ALT Alkaline Phosphatase Troponin I High Sens 1005.1 H* Total Protein Albumin Globulin Albumin/Globulin Ratio Lipase Urine Color YELLOW Urine Clarity CLEAR Urine pH 5.5 Ur Specific [place] 1.010 Urine Protein NEGATIVE Urine Glucose (UA) NEGATIVE Urine Ketones 15 H Urine Occult Blood SMALL H Urine Nitrite NEGATIVE Urine Bilirubin NEGATIVE Urine Urobilinogen 0.2 (NORMAL) Ur Leukocyte Esterase NEGATIVE Urine RBC 0-5 Urine WBC 0-3 Ur Squamous Epith Cells RARE Squamous Urine Bacteria None Seen Ur Microscopic Review INDICATED Urine Culture Comments NOT INDICATED - Rads (name of study) CXR Radiology: EMP read contemporaneously (Neg acute), See rad report PD MEDICAL DECISION MAKING - ED course Complexity details: re-evaluated patient, d/w patient, d/w family ED course: Patient had EKG changes but no chest pain or shortness of breath. 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 Is not been able to keep anything down because of the vomiting. His troponin came back elevated over 1200. I discussed this with him and have written orders for heparin. He would prefer transfer to [facility] so I have contacted their transfer center for transfer. 1242: Patient is a [facility] patient I spoke with the [facility] physician they can look for beds. I did alert them that he preferred [facility]. I discussed with the patient heparin and he is consented to receive heparin. He was also given baby aspirin. He remains pain-free. 1421: [facility] call me back there were no beds at their facilities and [facility] did not have a bed. [facility] authorized transfer to [facility] and have spoken to Dr. Concepcion, Cardiology, as well as the hospitalist Dr. Connolly and they have is both agreed accept the patient in transfer. Departure - Departure Disposition: 02 Transfer Acute Care Hosp Clinical Impression: NSTEMI (non-ST elevated myocardial infarction) Condition: Good Discharge Date/Time: 09/06/19 17:07
[2019-09-06 14:17] LABS: BILIRUBIN,URINE NEGATIVE (NEGATIVE); GLUCOSE, URINE (UA) NEGATIVE (NEGATIVE); KETONES,URINE (UA) 15 mg/dL (NEGATIVE); LEUKOCYTE ESTERASE, URINE NEGATIVE (NEGATIVE); NITRITE,URINE NEGATIVE (NEGATIVE); OCCULT BLOOD,URINE SMALL (NEGATIVE); PH,URINE 5.5 PH (5.0-7.5); PROTEIN,URINE NEGATIVE (NEGATIVE); UROBILINOGEN,URINE 0.2 (NORMAL) E.U./dL (NORMAL)
[2019-09-06 14:20] LABS: CLARITY,URINE CLEAR (CLEAR)
[2019-09-06 14:27] LABS: BACTERIA,URINE None Seen /HPF (None Seen); RBC,URINE 0-5 /HPF (0-5); SQUAMOUS EPITHELIAL CELL,UR RARE Squamous (<= Few)
[2019-09-06 16:06] VITALS: BP 138/81
== END 2019-09-06 17:07 | disposition short-term general hospital (02) ==
LOC: ED 10:26
DX: I21.4 Non-ST elevation (NSTEMI) myocardial infarction (principal); I10 Essential (primary) hypertension; Z79.52 Long term (current) use of systemic steroids
CPT/HCPCS: 36415; 71045; 80053; 81001; 83690; 84484; 85025; 93005; 96361; 96374; 96375; 99285; A9270; 81003; 87086

== ENCOUNTER 2019-09-06 17:10 | Outpatient (CLI) | payer MEDICARE | END 2019-09-06 17:11 | disposition short-term general hospital (02) | LOC: EMS 17:10 | PROVIDERS: ATTEND Surgery | DX: I21.4 Non-ST elevation (NSTEMI) myocardial infarction (principal) | CPT/HCPCS: A0425; A0426 ==

== ENCOUNTER 2019-10-20 09:11 | Outpatient (CLI) | payer MEDICARE ==
[2019-10-20 09:58] LABS: ALKALINE PHOSPHATASE 64 IU/L (42-121); ALT ALANINE AMINOTRANSFERASE 28 IU/L (10-60); AST ASPARTATE AMINOTRANSFERASE 28 IU/L (10-42); BILIRUBIN,DIRECT 0.1 mg/dL (0.1-0.5); BILIRUBIN,TOTAL 0.8 mg/dL (0.2-1.0); CHOL/HDL RATIO 3.2 (<5.0); CHOLESTEROL 148 mg/dL; HDL CHOLESTEROL 46 mg/dL; LDL CHOLESTEROL,CALCULATED 91 mg/dL; TOTAL PROTEIN 6.6 g/dL (6.7-8.2); VLDL CHOLESTEROL 11 mg/dL
== END 2019-10-20 09:12 | disposition home or self-care (01) ==
LOC: LAB 09:11
PROVIDERS: ATTEND Nurse Practitioner Family
DX: Z51.81 Encounter for therapeutic drug level monitoring (principal); Z79.899 Other long term (current) drug therapy; E78.5 Hyperlipidemia, unspecified; I21.4 Non-ST elevation (NSTEMI) myocardial infarction; Z09 Encounter for follow-up examination after completed treatment for conditions other than malignant neoplasm
CPT/HCPCS: 36415; 80061; 80076; 83721

== ENCOUNTER 2020-02-02 09:52 | Outpatient (CLI) | payer MEDICARE ==
[2020-02-02 10:32] LABS: BASOPHILS # (AUTO) 0.1 10^3/uL (0.0-0.1); BASOPHILS % (AUTO) 1.1 %; EOSINOPHILS # (AUTO) 0.1 10^3/uL (0.0-0.7); EOSINOPHILS % (AUTO) 2.4 %; HGB - HEMOGLOBIN 13.1 g/dL (14.0-18.0); LYMPHOCYTES # (AUTO) 2.1 10^3/uL (1.5-3.5); LYMPHOCYTES % (AUTO) 37.5 %; MEAN CORPUSCULAR HEMOGLOBIN 33.1 pg (27.0-31.0); MEAN CORPUSCULAR HGB CONC 34.4 g/dL (32.0-36.0); MEAN CORPUSCULAR VOLUME 96.2 fL (80.0-94.0); MEAN PLATELET VOLUME 8.4 fL (7.4-11.4); MONOCYTES # (AUTO) 0.4 10^3/uL (0.0-1.0); MONOCYTES % (AUTO) 7.6 %; NEUTROPHILS # (AUTO) 2.8 10^3/uL (1.5-6.6); NEUTROPHILS % (AUTO) 51.2 %; PLT - PLATELET COUNT 151 10^3/uL (130-450); RED BLOOD COUNT 3.96 10^6/uL (4.70-6.10); RED CELL DISTRIBUTION WIDTH 13.2 % (12.0-15.0); WHITE BLOOD COUNT 5.5 x10^3/uL (4.8-10.8)
[2020-02-02 10:50] LABS: ALBUMIN 3.9 g/dL (3.2-5.5); ALBUMIN/GLOBULIN RATIO 1.4 (1.0-2.2); ALKALINE PHOSPHATASE 64 IU/L (42-121); ALT ALANINE AMINOTRANSFERASE 22 IU/L (10-60); AST ASPARTATE AMINOTRANSFERASE 25 IU/L (10-42); BILIRUBIN,TOTAL 1.2 mg/dL (0.2-1.0); BUN - BLOOD UREA NITROGEN 16 mg/dL (6-20); CALCIUM 8.5 mg/dL (8.5-10.3); CARBON DIOXIDE - CO2 29 mmol/L (21-32); CHLORIDE 101 mmol/L (101-111); CHOL/HDL RATIO 2.5 (<5.0); CHOLESTEROL 136 mg/dL; CREATININE 1.1 mg/dL (0.6-1.2); GLUCOSE 99 mg/dL (70-100); HDL CHOLESTEROL 54 mg/dL; LDL CHOLESTEROL,CALCULATED 68 mg/dL; LDL/HDL RATIO 1.3 (<3.6); SODIUM 138 mmol/L (135-145); TOTAL PROTEIN 6.6 g/dL (6.7-8.2); VLDL CHOLESTEROL 14 mg/dL
[2020-02-02 11:33] LABS: FREE T4 (FREE THYROXINE) 1.16 ng/dL (0.58-1.64)
== END 2020-02-02 09:53 | disposition home or self-care (01) ==
LOC: LAB 09:52
PROVIDERS: ATTEND Family Medicine
DX: I21.4 Non-ST elevation (NSTEMI) myocardial infarction (principal); I51.81 Takotsubo syndrome; E23.0 Hypopituitarism
CPT/HCPCS: 36415; 80053; 80061; 83721; 84439; 84443; 85025

== ENCOUNTER 2020-06-27 10:46 | Outpatient (CLI) | payer MEDICARE ==
[2020-06-27 11:09] LABS: HGB - HEMOGLOBIN 13.6 g/dL (14.0-18.0)
[2020-06-27 11:19] LABS: CALCIUM 8.9 mg/dL (8.5-10.3); CREATININE 1.1 mg/dL (0.6-1.2)
== END 2020-06-27 10:47 | disposition home or self-care (01) ==
LOC: LAB 10:46
PROVIDERS: ATTEND Internal Medicine Endocrinology, Diabetes & Metabolism
DX: E23.0 Hypopituitarism (principal)
CPT/HCPCS: 36415; 80048; 81599; 84305; 84403; 84439; 85014; 85018

== ENCOUNTER 2020-11-22 10:31 | Outpatient (CLI) | payer MEDICARE ==
[2020-11-22 10:50] LABS: BASOPHILS # (AUTO) 0.1 10^3/uL (0.0-0.1); EOSINOPHILS # (AUTO) 0.2 10^3/uL (0.0-0.7); EOSINOPHILS % (AUTO) 3.3 %; HCT - HEMATOCRIT 38.7 % (42.0-52.0); HGB - HEMOGLOBIN 12.6 g/dL (14.0-18.0); LYMPHOCYTES # (AUTO) 2.6 10^3/uL (1.5-3.5); LYMPHOCYTES % (AUTO) 36.6 %; MEAN CORPUSCULAR HEMOGLOBIN 31.3 pg (27.0-31.0); MEAN CORPUSCULAR HGB CONC 32.6 g/dL (32.0-36.0); MEAN CORPUSCULAR VOLUME 96.3 fL (80.0-94.0); MEAN PLATELET VOLUME 8.5 fL (7.4-11.4); MONOCYTES # (AUTO) 0.5 10^3/uL (0.0-1.0); MONOCYTES % (AUTO) 6.9 %; NEUTROPHILS # (AUTO) 3.6 10^3/uL (1.5-6.6); NEUTROPHILS % (AUTO) 51.9 %; PLT - PLATELET COUNT 178 10^3/uL (130-450); RED BLOOD COUNT 4.02 10^6/uL (4.70-6.10); RED CELL DISTRIBUTION WIDTH 13.3 % (12.0-15.0)
[2020-11-22 11:10] LABS: CHOL/HDL RATIO 4.7 (<5.0); CHOLESTEROL 191 mg/dL; HDL CHOLESTEROL 41 mg/dL; LDL CHOLESTEROL,CALCULATED 131 mg/dL; LDL/HDL RATIO 3.2 (<3.6); TRIGLYCERIDES 96 mg/dL; VLDL CHOLESTEROL 19 mg/dL
[2020-11-22 11:19] LABS: MICROALBUMIN,URINE < 0.2 mg/dL (0-300.0)
[2020-11-22 11:30] LABS: ESTIMATED AVERAGE GLUCOSE 103 mg/dL (70-100); HEMOGLOBIN A1c% 5.2 % (4.27-6.07)
[2020-11-22 11:41] LABS: THYROID STIMULATING HORMONE 0.1 uIU/mL (0.34-5.60)
[2020-11-22 12:33] LABS: FREE T4 (FREE THYROXINE) 0.99 ng/dL (0.58-1.64)
== END 2020-11-22 10:32 | disposition home or self-care (01) ==
LOC: LAB 10:31
PROVIDERS: ATTEND Internal Medicine
DX: I21.4 Non-ST elevation (NSTEMI) myocardial infarction (principal); E55.9 Vitamin D deficiency, unspecified; E23.2 Diabetes insipidus; I10 Essential (primary) hypertension; E03.9 Hypothyroidism, unspecified; R53.83 Other fatigue; E78.5 Hyperlipidemia, unspecified
CPT/HCPCS: 36415; 80061; 82043; 82306; 82570; 83036; 83721; 84439; 84443; 85025

== ENCOUNTER 2020-12-15 13:44 | Emergency (ER) | payer MEDICARE ==
--- NOTE | 2020-12-15 14:00 | ED Physician Documentation ---
PD HPI HEADACHE - Stated complaint Stated Complaint: DIZZINESS - Chief complaint Chief Complaint: Cardiac - History obtained from History obtained from: Patient - History of Present Illness Timing - onset: How many days ago (2) Timing - onset during: Light activity (he was driving 2 days ago and noted abrupt onset of feeling lightheaded and perhaps confused. Did not have headache at that time. No vertigo per se. Feeling of having some trouble word searching. Some headache yesterday but more pressure feeling. Today still feeling off balance and word loss at time) Timing - duration: Days (2) Timing - details: Abrupt onset, Still present, Waxing and waning Worst headache ever?: No: Worst headache ever? Location: Global Quality: Throbbing Associated symptoms: No: Fever, Stiff neck, Nausea, Vomiting, Vision changes Improved by: No: Rest Worsened by: No: Light, Noise Contributing factors: No: Recent illness, Trauma Similar symptoms before: Has not had sx before Recently seen: Not recently seen Review of Systems Constitutional: denies: Fever, Chills Nose: denies: Rhinorrhea / runny nose, Congestion Throat: denies: Sore throat Respiratory: denies: Cough GI: denies: Abdominal Pain, Nausea, Vomiting : denies: Dysuria Skin: denies: Rash, Lesions Musculoskeletal: denies: Neck pain, Back pain Neurologic: reports: Confused (feeling slow thought process and some word searching), Headache (mild, pressure). denies: Focal weakness, Numbness, Near syncope, Altered mental status, Head injury PD PAST MEDICAL HISTORY - Past Medical History Cardiovascular: Hypertension Respiratory: None Neuro: None Endocrine/Autoimmune: HyPOthyroidism, Other GI: None : None HEENT: None Psych: Depression Musculoskeletal: Osteoarthritis Derm: Other - Past Surgical History Past Surgical History: Yes General: Colonoscopy Ortho: Hip replacement HEENT: Tonsil/Adenoidectomy Derm: Skin cancer surgery - Present Medications Home Medications: Ambulatory Orders Medication Instructions Recorded Confirmed Testosterone 5 gm TD ONCE 10/02/16 01/18/19 Hydrocortisone [Cortef] 20 mg PO DAILYWM tablet 12/29/16 01/18/19 Levothyroxine [Synthroid] 125 mcg PO QDAC 12/15/20 - Allergies Allergies/Adverse Reactions: Allergies Allergy/AdvReac Type Severity Reaction Status Date / Time No Known Drug Allergies Allergy Verified 12/15/20 13:48 - Social History Does the pt smoke?: No Smoking Status: Never smoker Does the pt drink ETOH?: Yes Does the pt have substance abuse?: No - Immunizations Immunizations are current?: Yes - POLST Patient has POLST: No PD ED PE NORMAL - Vitals Vital signs reviewed: Yes - General General: Alert and oriented X 3, No acute distress, Well developed/nourished - HEENT HEENT: PERRL, EOMI, Pharynx benign - Neck Neck: Supple, no meningeal sign, No adenopathy - Cardiac Cardiac: RRR, No murmur - Respiratory Respiratory: Clear bilaterally - Abdomen Abdomen: Soft, Non tender - Back Back: No CVA TTP - Derm Derm: Normal color, Warm and dry - Extremities Extremities: No deformity, No tenderness to palpate, Normal ROM s pain, No edema, No calf tenderness / cord - Neuro Neuro: Alert and oriented X 3, 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, No motor deficit, No sensory deficit, Normal speech Eye Opening: Spontaneous Motor: Obeys Commands Verbal: Oriented GCS Score: 15 Results - Vitals Vitals: Vital Signs - 24 hr 12/15/20 12/15/20 12/15/20 13:48 14:26 15:00 Temperature 36.5 C 36.7 C Heart Rate 75 78 59 L Respiratory 16 15 16 Rate Blood Pressure 155/94 H 141/90 H 137/74 H O2 Saturation 99 99 99 12/15/20 12/15/20 15:30 17:00 Temperature Heart Rate 57 L 68 Respiratory 16 16 Rate Blood Pressure 135/76 H 129/84 H O2 Saturation 99 99 Oxygen O2 Source Room air - EKG (time done) 14:01 Rate: Rate (enter#) (60) Rhythm: NSR, Other (frequent PACs/PVCs.) [place]: Normal Intervals: Normal VA QRS: Normal Ischemia: Normal ST segments. No: ST elevation c/w ischemia, ST depression - Labs Labs: Laboratory Tests 12/15/20 12/15/20 12/15/20 14:06 14:06 14:06 WBC 6.5 RBC 4.20 L Hgb 13.0 L Hct 39.7 L MCV 94.5 H MCH 31.0 MCHC 32.7 RDW 13.2 Plt Count 163 MPV 8.2 Neut # (Auto) 2.8 Lymph # (Auto) 3.0 [place] # (Auto) 0.4 Eos # (Auto) 0.2 Baso # (Auto) 0.1 Absolute Nucleated RBC 0.00 Nucleated RBC % 0.0 Sodium 140 Potassium 4.0 Chloride 105 Carbon Dioxide 27 Anion Gap 8.0 BUN 16 Creatinine 1.0 Estimated GFR (MDRD) 72 L Glucose 91 Calcium 8.8 Total Bilirubin 0.4 AST 23 ALT 18 Alkaline Phosphatase 62 Troponin I High Sens 12.7 C-Reactive Protein Total Protein 6.9 Albumin 4.0 Globulin 2.9 Albumin/Globulin Ratio 1.4 Lipase 32 12/15/20 14:06 WBC RBC Hgb Hct MCV MCH MCHC RDW Plt Count MPV Neut # (Auto) Lymph # (Auto) [place] # (Auto) Eos # (Auto) Baso # (Auto) Absolute Nucleated RBC Nucleated RBC % Sodium Potassium Chloride Carbon Dioxide Anion Gap BUN Creatinine Estimated GFR (MDRD) Glucose Calcium Total Bilirubin AST ALT Alkaline Phosphatase Troponin I High Sens C-Reactive Protein 1.3 H Total Protein Albumin Globulin Albumin/Globulin Ratio Lipase - Rads (name of study) head CT Radiology: Prelim report reviewed (no acute process), See rad report chest xray Radiology: Prelim report reviewed (no acute process), See rad report PD MEDICAL DECISION MAKING - ED course Complexity details: reviewed results (head CT without acute findings.), re- evaluated patient, considered differential (consider CVA and our MRI is not available indefinitely. ), d/w patient ED course: I talked with the [facility] physician who spoke with the emergency room at [facility] and the emergency physician there was willing to have the patient transferred ER to ER for MRI and decide disposition with that. He would return or be discharged if negative and be admitted to the [facility] service if positive. The patient is aware of this. I talked with the emergency physician at [facility], Dr. Martino, who confirms he is agreeable on that plan. Departure - Departure Disposition: 02 Transfer Acute Care Hosp Clinical Impression: Acute confusion, Vertigo Condition: Stable NIHSS - Level of Consciousness Level of consciousness: (0) Alert, Keenly responsive LOC Questions: (0) Answers both Q's correct LOC Commands: (0) Performs both correctly - Gaze Best Gaze: (0) Normal - Visual Visual: (0) No loss - Facial Palsy Facial Palsy: (0) Normal, symmetrical movement - Motor Arms (both separate) Motor Arm (right): (0) No drift Motor Arm (left): (0) No drift - Motor Legs (both separate) Motor Leg (right): (0) No drift Motor Leg (left): (0) No drift - Limb Ataxia Limb Ataxia: (0) Absent - Sensory Sensory: (0) Normal - Best Language Best Language: (1) [id number] (some missed words or mispronunciations, which he feels frustrated when happens.) - Dysarthria Dysarthria: (0) Normal - Extinction and Inattention (formally neg Extinction and inattention: (0) No abnormality - Total Score/Results Total Score/Result: 1
[2020-12-15 14:11] LABS: BASOPHILS # (AUTO) 0.1 10^3/uL (0.0-0.1); BASOPHILS % (AUTO) 0.9 %; EOSINOPHILS # (AUTO) 0.2 10^3/uL (0.0-0.7); EOSINOPHILS % (AUTO) 2.6 %; HCT - HEMATOCRIT 39.7 % (42.0-52.0); LYMPHOCYTES % (AUTO) 45.8 %; MEAN CORPUSCULAR HGB CONC 32.7 g/dL (32.0-36.0); MEAN CORPUSCULAR VOLUME 94.5 fL (80.0-94.0); MEAN PLATELET VOLUME 8.2 fL (7.4-11.4); MONOCYTES # (AUTO) 0.4 10^3/uL (0.0-1.0); MONOCYTES % (AUTO) 6.6 %; NEUTROPHILS # (AUTO) 2.8 10^3/uL (1.5-6.6); NEUTROPHILS % (AUTO) 43.8 %; PLT - PLATELET COUNT 163 10^3/uL (130-450); RED CELL DISTRIBUTION WIDTH 13.2 % (12.0-15.0); WHITE BLOOD COUNT 6.5 x10^3/uL (4.8-10.8)
--- NOTE | 2020-12-15 14:14 | XRAY Report ---
PROCEDURE: Chest 1 View X-Ray INDICATIONS: Chest pain TECHNIQUE: One view of the chest was acquired. COMPARISON: 09/06/2019 FINDINGS: Surgical changes and devices: None. Lungs and pleura: No pleural effusions or pneumothorax. Lungs are clear. Mediastinum: Mediastinal contours appear normal. Heart size is normal. Bones and chest wall: No suspicious bony lesions. Overlying soft tissues appear unremarkable. IMPRESSION: No acute cardiopulmonary disease process. Reviewed by: Jocelyn Bedoya MD, PhD on 12/15/2020 2:13 PM PDT Approved by: Jocelyn eBdoya MD, PhD on 12/15/2020 2:13 PM PDT Station ID: [id number]
[2020-12-15 14:34] LABS: ALBUMIN/GLOBULIN RATIO 1.4 (1.0-2.2); BILIRUBIN,TOTAL 0.4 mg/dL (0.2-1.0); CALCIUM 8.8 mg/dL (8.5-10.3); TOTAL PROTEIN 6.9 g/dL (6.7-8.2)
--- OUTSIDE RECORDS SUMMARY | 2020-12-15 14:49 | EXTERNAL MEDICAL SUMMARY RPT | Continuity of Care Document ---
:1940 Demographics Phone Unavailable Preferred Language Unknown Marital Status Unknown Judaism Affiliation Unknown Race Unknown Ethnic Group Unknown Author Organization [place] Address [address] [place] [address] Phone Social History date description facility [id number]
--- NOTE | 2020-12-15 14:54 | CT Report ---
PROCEDURE: HEAD WO INDICATIONS: headache and feels lightheaded 2 days TECHNIQUE: Noncontrast 4.5 mm thick angled axial sections acquired from the foramen magnum to the vertex. For r adiation dose reduction, the following was used: automated exposure control, adjustment of mA and/or kV according to patient size. COMPARISON: None. FINDINGS: Image quality: Excellent. CSF spaces: Basal cisterns are patent. No extra-axial fluid collections. Ventricles are normal in size and shape. Brain: No midline shift. Mild cerebral and cerebella cortical atrophy is seen. Moderate periventricu lar and deep white matter chronic small vessel ischemic changes are seen. Benign-appearing calcificat ions in bilateral basal ganglia are seen. No intracranial masses or hemorrhage. Crow-white matter in terface is normal. Skull and face: Calvarium and visualized facial bones are intact, without suspicious lesions. Sinuses: Visualized sinuses and mastoids are clear. IMPRESSION: 1. No CT evidence of acute intracranial pathology. 2. Mild atrophy and mild to moderate white matter chronic small vessel ischemic changes. Reviewed by: Marcos Draper MD on 12/15/2020 2:53 PM PDT Approved by: Marcos Draper MD on 12/15/2020 2:53 PM PDT Station ID: [id number]
[2020-12-15 18:14] VITALS: BP 141/73
[2020-12-15 18:27] LABS: B. PARAPERTUSSIS- RESP PCR PAN NOT DETECTED; B. PERTUSSIS- RESP PCR PANEL NOT DETECTED; C. PNEUMONIAE- RESP PCR PANEL NOT DETECTED; CORONAVIRUS 229E-RESP PCR NOT DETECTED; CORONAVIRUS HKU1-RESP PCR NOT DETECTED; CORONAVIRUS NL63-RESP PCR NOT DETECTED; CORONAVIRUS OC43-RESP PCR NOT DETECTED; HUMAN METAPNEUMOVIRUS NOT DETECTED; INFLUENZA A- RESP PCR PANEL NOT DETECTED; INFLUENZA B - RESP PCR PANEL NOT DETECTED; M. PNEUMONIAE- RESP PCR PANEL NOT DETECTED; PARAINFLUENZA VIRUS 1 NOT DETECTED; PARAINFLUENZA VIRUS 2 NOT DETECTED; PARAINFLUENZA VIRUS 3 NOT DETECTED; PARAINFLUENZA VIRUS 4 NOT DETECTED; RHINOVIRUS/ENTEROVIRUS NOT DETECTED; RSV- RESP PCR PANEL NOT DETECTED; SARS-CoV-2 -RESP PCR PANEL NOT DETECTED
== END 2020-12-15 18:13 | disposition short-term general hospital (02) ==
LOC: ED 13:44
DX: R41.0 Disorientation, unspecified (principal); R42 Dizziness and giddiness; I10 Essential (primary) hypertension; Z20.822 Contact with and (suspected) exposure to COVID-19
CPT/HCPCS: 0202U; 36415; 80053; 83690; 84484; 85025; 86140; 93005; 99284; 99285

== ENCOUNTER 2021-05-16 11:05 | Outpatient (CLI) | payer MEDICARE | END 2021-05-16 11:06 | disposition home or self-care (01) | LOC: LAB 11:05 | PROVIDERS: ATTEND Internal Medicine Endocrinology, Diabetes & Metabolism | DX: E29.1 Testicular hypofunction (principal) | CPT/HCPCS: 36415; 84153; 84403 ==

== ENCOUNTER 2021-10-16 15:22 | Outpatient (CLI) | payer MEDICARE ==
--- NOTE | 2021-10-16 17:18 | DEXA Report ---
PROCEDURE: Dexa Spine and/or Hip INDICATIONS: STEROID USE, NURSING HOME TECHNIQUE: Dual energy x-ray absorptiometry (DXA) was performed on a [employer] System. Regions measur ed are the AP Spine, femoral neck, and if needed forearm. COMPARISON: None. FINDINGS: Lumbar Spine: Bone Mineral Density 1.314 g/cm/cm,T score 0.8, normal Left Hip: Bone Mineral Density 0.982 g/cm/cm,T score -0.8, normal Left Femoral Neck: Bone Mineral Density 0.906 g/cm/cm, T score -1.3, osteopenia (T score greater or equal to -1.0: NORMAL) (T score from -1.1 to -2.4: OSTEOPENIA) (T score less than or equal to -2.5 to: OSTEOPOROSIS) Impression: Osteopenia. Patients with diagnosis of osteoporosis or osteopenia should have regular bone mineral density assess ment. For those eligible for Medicare, routine testing is allowed once every 2 years. Testing frequ ency can be increased for patients who have rapidly progressing disease or for those who are receivin g medical therapy to restore bone mass. Reviewed by: Jocelyn Bedoya MD, PhD on 10/16/2021 5:17 PM PST Approved by: Jocelyn Bedoya MD, PhD on 10/16/2021 5:17 PM PST Station ID: [id number]
== END 2021-10-16 15:23 | disposition home or self-care (01) ==
LOC: DI 15:22
PROVIDERS: ATTEND Internal Medicine
DX: M85.88 Other specified disorders of bone density and structure, other site (principal)

== ENCOUNTER 2021-12-18 08:00 | Outpatient (CLI) | payer MEDICARE ==
[2021-12-18 11:30] LABS: ALBUMIN 4.1 g/dL (3.2-5.5); BILIRUBIN,DIRECT 0.1 mg/dL (0.1-0.5); BILIRUBIN,TOTAL 0.7 mg/dL (0.2-1.0)
== END 2021-12-18 23:59 | disposition home or self-care (01) ==
LOC: LAB 08:00
PROVIDERS: ATTEND Physician Assistant
DX: B35.1 Tinea unguium (principal)
CPT/HCPCS: 36415; 80076

== ENCOUNTER 2021-12-29 08:29 | Outpatient (CLI) | payer MEDICARE ==
[2021-12-29 08:56] LABS: BASOPHILS # (AUTO) 0.1 10^3/uL (0.0-0.1); BASOPHILS % (AUTO) 0.7 %; EOSINOPHILS # (AUTO) 0.2 10^3/uL (0.0-0.7); EOSINOPHILS % (AUTO) 2.5 %; HCT - HEMATOCRIT 41.3 % (42.0-52.0); HGB - HEMOGLOBIN 13.9 g/dL (14.0-18.0); LYMPHOCYTES # (AUTO) 3.7 10^3/uL (1.5-3.5); LYMPHOCYTES % (AUTO) 53.9 %; MEAN CORPUSCULAR HEMOGLOBIN 31.4 pg (27.0-31.0); MEAN CORPUSCULAR HGB CONC 33.7 g/dL (32.0-36.0); MEAN CORPUSCULAR VOLUME 93.4 fL (80.0-94.0); MEAN PLATELET VOLUME 8.7 fL (7.4-11.4); MONOCYTES # (AUTO) 0.4 10^3/uL (0.0-1.0); NEUTROPHILS # (AUTO) 2.5 10^3/uL (1.5-6.6); NEUTROPHILS % (AUTO) 36.8 %; PLT - PLATELET COUNT 165 10^3/uL (130-450); RED BLOOD COUNT 4.42 10^6/uL (4.70-6.10); RED CELL DISTRIBUTION WIDTH 13.1 % (12.0-15.0); WHITE BLOOD COUNT 6.8 x10^3/uL (4.8-10.8)
[2021-12-29 09:10] LABS: ALBUMIN 4.2 g/dL (3.2-5.5); ALBUMIN/GLOBULIN RATIO 1.4 (1.0-2.2); ALKALINE PHOSPHATASE 81 IU/L (42-121); ALT ALANINE AMINOTRANSFERASE 23 IU/L (10-60); AST ASPARTATE AMINOTRANSFERASE 30 IU/L (10-42); BILIRUBIN,TOTAL 0.9 mg/dL (0.2-1.0); BUN - BLOOD UREA NITROGEN 25 mg/dL (6-20); CALCIUM 8.9 mg/dL (8.5-10.3); CARBON DIOXIDE - CO2 26 mmol/L (21-32); CHLORIDE 102 mmol/L (101-111); CHOL/HDL RATIO 4.3 (<5.0); CHOLESTEROL 202 mg/dL; CREATININE 1.1 mg/dL (0.6-1.2); GFR - MDRD 65 (>89); GLUCOSE 105 mg/dL (70-100); HDL CHOLESTEROL 47 mg/dL; LDL CHOLESTEROL,CALCULATED 128 mg/dL; LDL/HDL RATIO 2.7 (<3.6); POTASSIUM 3.9 mmol/L (3.5-5.0); SODIUM 138 mmol/L (135-145); TOTAL PROTEIN 7.1 g/dL (6.7-8.2); TRIGLYCERIDES 134 mg/dL; VLDL CHOLESTEROL 27 mg/dL
[2021-12-29 09:21] LABS: THYROID STIMULATING HORMONE 0.14 uIU/mL (0.34-5.60)
[2021-12-29 10:01] LABS: FREE T4 (FREE THYROXINE) 0.79 ng/dL (0.58-1.64)
[2021-12-29 19:17] LABS: ESTIMATED AVERAGE GLUCOSE 108 mg/dL (70-100); HEMOGLOBIN A1c% 5.4 % (4.27-6.07)
== END 2021-12-29 08:30 | disposition home or self-care (01) ==
LOC: LAB 08:29
PROVIDERS: ATTEND Internal Medicine
DX: I10 Essential (primary) hypertension (principal); E78.5 Hyperlipidemia, unspecified; E23.0 Hypopituitarism; N40.0 Benign prostatic hyperplasia without lower urinary tract symptoms
CPT/HCPCS: 36415; 80053; 80061; 81599; 83036; 83721; 84153; 84403; 84439; 84443; 85025

== ENCOUNTER 2022-03-08 13:19 | Outpatient (CLI) | payer MEDICARE ==
--- NOTE | 2022-03-08 20:06 | XRAY Report ---
PROCEDURE: Hip w/Pelvis 2-3V RT INDICATIONS: ARTHRITIS,RIGHT HIP TECHNIQUE: AP pelvis with lateral view(s) of the right hip(s). COMPARISON: None. FINDINGS: Bones: There is a total right hip arthroplasty. There is very minimal lucency along the femoral compo nent, which may be a normal finding. However, there are no comparison studies available. No dislocati on. No periprosthetic fracture. No fractures or dislocations. Pelvic ring appears intact. No suspic ious bony lesions. Soft tissues: The visualized bowel gas pattern is normal. No suspicious soft tissue calcifications. IMPRESSION: Total right hip arthroplasty in place, most likely unremarkable. There is minimal lucenc y along the femoral component, which is commonly seen. Comment: Should prior films become available, a comparison can be made at that time, and an addendum can be made to this report. Reviewed by: Fausto Schwab MD on 03/08/2022 8:05 PM PDT Approved by: Fausto Schwab MD on 03/08/2022 8:05 PM PDT Station ID: [id number]
== END 2022-03-08 13:20 | disposition home or self-care (01) ==
LOC: DI 13:19
PROVIDERS: ATTEND Internal Medicine
DX: M16.11 Unilateral primary osteoarthritis, right hip (principal); Z96.641 Presence of right artificial hip joint

== ENCOUNTER 2022-07-21 11:19 | Outpatient (CLI) | payer MEDICARE | END 2022-07-21 23:59 | disposition critical access hospital (66) | LOC: EMS 11:19 | DX: R41.0 Disorientation, unspecified (principal); R53.81 Other malaise; R19.7 Diarrhea, unspecified; R51.9 Headache, unspecified; R11.0 Nausea; R68.83 Chills (without fever); R42 Dizziness and giddiness | CPT/HCPCS: A0425; A0427 ==

== ENCOUNTER 2022-07-21 11:36 | Emergency (ER) | payer MEDICARE ==
[2022-07-21] MEDS ORDERED: SODIUM CHLORIDE 0.9% 1,000 ML IV STA ×3 (11:52→12:32)
[2022-07-21] MEDS ORDERED: DEXTROSE 10% 250 ML IV STA (11:53)
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
[2022-07-21] MEDS ORDERED: HYDROCORTISONE SUCCINATE 100 MG/2 ML VIAL IVP STA (12:01)
[2022-07-21 12:11] LABS: BASOPHILS # (AUTO) 0.1 10^3/uL (0.0-0.1); BASOPHILS % (AUTO) 0.7 %; EOSINOPHILS % (AUTO) 0.1 %; HCT - HEMATOCRIT 39.8 % (42.0-52.0); HGB - HEMOGLOBIN 13.5 g/dL (14.0-18.0); LYMPHOCYTES # (AUTO) 2.3 10^3/uL (1.5-3.5); MEAN CORPUSCULAR HEMOGLOBIN 31.5 pg (27.0-31.0); MEAN CORPUSCULAR HGB CONC 33.9 g/dL (32.0-36.0); MEAN CORPUSCULAR VOLUME 92.8 fL (80.0-94.0); MEAN PLATELET VOLUME 8.7 fL (7.4-11.4); MONOCYTES # (AUTO) 0.7 10^3/uL (0.0-1.0); MONOCYTES % (AUTO) 9.1 %; NEUTROPHILS # (AUTO) 4.9 10^3/uL (1.5-6.6); NEUTROPHILS % (AUTO) 60.9 %; PLT - PLATELET COUNT 152 10^3/uL (130-450); RED BLOOD COUNT 4.29 10^6/uL (4.70-6.10); RED CELL DISTRIBUTION WIDTH 13.6 % (12.0-15.0); WHITE BLOOD COUNT 8.1 x10^3/uL (4.8-10.8)
[2022-07-21 12:26] LABS: ALBUMIN 3.9 g/dL (3.2-5.5); ALBUMIN/GLOBULIN RATIO 1.3 (1.0-2.2); BILIRUBIN,TOTAL 1.3 mg/dL (0.2-1.0); CALCIUM 8.2 mg/dL (8.5-10.3); CREATININE 2.1 mg/dL (0.6-1.2); MAGNESIUM 1.5 mg/dL (1.7-2.8); PHOSPHORUS 1.9 mg/dL (2.5-4.6); POTASSIUM 3.8 mmol/L (3.5-5.0)
[2022-07-21] MEDS ORDERED: MAGNESIUM SULFATE 2 GRAM 2 GM/50 ML BAG IV ONE (12:32)
[2022-07-21 14:21] LABS: B. PARAPERTUSSIS- RESP PCR PAN NOT DETECTED; B. PERTUSSIS- RESP PCR PANEL NOT DETECTED; C. PNEUMONIAE- RESP PCR PANEL NOT DETECTED; CORONAVIRUS 229E-RESP PCR NOT DETECTED; CORONAVIRUS HKU1-RESP PCR NOT DETECTED; CORONAVIRUS NL63-RESP PCR NOT DETECTED; CORONAVIRUS OC43-RESP PCR NOT DETECTED; HUMAN METAPNEUMOVIRUS NOT DETECTED; INFLUENZA A- RESP PCR PANEL NOT DETECTED; INFLUENZA B - RESP PCR PANEL NOT DETECTED; M. PNEUMONIAE- RESP PCR PANEL NOT DETECTED; PARAINFLUENZA VIRUS 1 NOT DETECTED; PARAINFLUENZA VIRUS 2 NOT DETECTED; PARAINFLUENZA VIRUS 3 NOT DETECTED; PARAINFLUENZA VIRUS 4 NOT DETECTED; RHINOVIRUS/ENTEROVIRUS NOT DETECTED; RSV- RESP PCR PANEL NOT DETECTED; SARS-CoV-2 -RESP PCR PANEL NOT DETECTED
[2022-07-21 15:08] LABS: BILIRUBIN,URINE NEGATIVE (NEGATIVE); GLUCOSE, URINE (UA) NEGATIVE (NEGATIVE); KETONES,URINE (UA) NEGATIVE (NEGATIVE); LEUKOCYTE ESTERASE, URINE NEGATIVE (NEGATIVE); NITRITE,URINE NEGATIVE (NEGATIVE); OCCULT BLOOD,URINE MODERATE (NEGATIVE); PH,URINE 5.5 PH (5.0-7.5); PROTEIN,URINE NEGATIVE (NEGATIVE); UROBILINOGEN,URINE 0.2 (NORMAL) E.U./dL (NORMAL)
[2022-07-21 15:10] LABS: CLARITY,URINE CLEAR (CLEAR)
[2022-07-21 15:24] LABS: BACTERIA,URINE None Seen /HPF (None Seen); SQUAMOUS EPITHELIAL CELL,UR RARE Squamous (<= Few); WBC,URINE 0-3 /HPF (0-3)
[2022-07-21 16:22] LABS: CALCIUM 7.5 mg/dL (8.5-10.3); CREATININE 1.5 mg/dL (0.6-1.2); POTASSIUM 3.7 mmol/L (3.5-5.0)
--- NOTE | 2022-07-21 19:26 | CT Report ---
PROCEDURE: ABDOMEN/PELVIS WO INDICATIONS: abd pain, diarrhea TECHNIQUE: Noncontrast 5 mm thick sections acquired from the diaphragms to the symphysis. 5 mm coronal and sagi ttal reformats were then performed. For radiation dose reduction, the following was used: automated exposure control, adjustment of mA and/or kV according to patient size. COMPARISON: None. FINDINGS: Image quality: Diagnostic. ABDOMEN: Lung bases: Lung bases are clear. Heart size is normal. Atherosclerotic calcifications of the coron taty arteries. Small hiatal hernia. Solid organs: Liver and spleen are normal in size. Gallbladder is unremarkable. Pancreas is normal in contours. No adrenal nodules. Kidneys are normal in size, without hydronephrosis or nephrolithi asis. Peritoneum and bowel: Scattered colonic diverticulosis. There is long segment mild circumferential w all thickening of the transverse colon through the sigmoid colon with mild inflammatory stranding inv olving several scattered diverticula. Diverticular inflammation likely secondary to more generalized chronic inflammatory changes. Visualized stomach and small bowel appear unremarkable. No free fluid o r air. Nodes and vessels: No retroperitoneal or mesenteric adenopathy by size criteria. Aorta and inferior vena cava are normal in caliber. Atherosclerotic calcifications are present. Miscellaneous: No ventral hernias. PELVIS: Genitourinary: Bladder wall thickness is mildly thickened for degree of bladder distention. There is prostatomegaly. Miscellaneous: No inguinal hernias or adenopathy. Bones: No suspicious bony lesions. No acute vertebral body compression fractures. Multilevel spondy losis IMPRESSION: 1. Findings compatible with colitis involving the transverse colon through the sigmoid colon with sec ondary inflammatory changes of scattered colonic diverticula. No evidence for perforation or abscess formation. 2. Urinary bladder wall thickening greater than expected for degree of distention. Findings may be re lated to cystitis versus sequela of chronic urinary obstruction given presence of prostatomegaly. Rec ommend clinical and laboratory correlation. 3. Small hiatal hernia. 4. Atherosclerosis. 5. Multilevel spondylosis. Reviewed by: Uri Hitchcock MD on 07/21/2022 7:25 PM PST Approved by: Uri Hitchcock MD on 07/21/2022 7:25 PM PST Station ID: [id number]
[2022-07-21 19:38] VITALS: BP 116/71
== END 2022-07-21 19:57 | disposition home or self-care (01) ==
LOC: EDUNIT# → ED 11:36
DX: E86.0 Dehydration (principal); R19.7 Diarrhea, unspecified; Z20.822 Contact with and (suspected) exposure to COVID-19
CPT/HCPCS: 36415; 80048; 80053; 81001; 81003; 83690; 83735; 84100; 85025; 87086; 87493; 87633; 93005; 96361; 96365; 96366; 96375; 99282

== ENCOUNTER 2022-09-04 09:13 | Outpatient (CLI) | payer MEDICARE ==
[2022-09-04 09:32] LABS: HCT - HEMATOCRIT 39.1 % (42.0-52.0); HGB - HEMOGLOBIN 12.8 g/dL (14.0-18.0)
[2022-09-04 09:41] LABS: CALCIUM 8.5 mg/dL (8.5-10.3); CREATININE 1.1 mg/dL (0.6-1.2); POTASSIUM 3.6 mmol/L (3.5-5.0)
== END 2022-09-04 09:14 | disposition home or self-care (01) ==
LOC: LAB 09:13
PROVIDERS: ATTEND Internal Medicine Endocrinology, Diabetes & Metabolism
DX: E23.0 Hypopituitarism (principal)
CPT/HCPCS: 36415; 80048; 84153; 84305; 84403; 84439; 85014; 85018

== ENCOUNTER 2023-05-03 09:04 | Outpatient (CLI) | payer MEDICARE ==
[2023-05-03 09:21] LABS: HCT - HEMATOCRIT 41.8 % (42.0-52.0)
[2023-05-03 09:43] LABS: CALCIUM 8.8 mg/dL (8.5-10.3); CREATININE 1.2 mg/dL (0.6-1.3); POTASSIUM 3.9 mmol/L (3.5-4.5)
== END 2023-05-03 09:05 | disposition home or self-care (01) ==
LOC: LAB 09:04
PROVIDERS: ATTEND Internal Medicine Gastroenterology
DX: E03.9 Hypothyroidism, unspecified (principal)
CPT/HCPCS: 36415; 80048; 84153; 84305; 84403; 84439; 85014; 85018

== ENCOUNTER 2023-05-24 10:15 | Emergency (ER) | payer MEDICARE ==
--- NOTE | 2023-05-24 11:36 | ED Physician Documentation ---
History of Present Illness - Stated complaint Stated Complaint: FACE NUMBNESS RT - Chief complaint Chief Complaint: Neuro - Additonal information Additional information: 82-year-old male presents to the emergency department for concerns that he may have had a TIA or stroke. Patient states that when he woke up this morning about 6 AM to let his dog out when he was returning to bed he had a sensation that the right half of his face was numb and that there was something black traveling up his head. However he does not think that he had vision loss. States he looked in the mirror and had no facial droop. He denies any arm or muscle weakness. No CP, SOA. Denies any previous coronary or stroke history. He is not anticoagulated. This gentleman does have a history of malignant melanoma in the right leg. He is on testosterone, levothyroxine and hydrocortisone for life due to treatments associated with that melanoma. Denies a history of hypertension. Non-smoker. Patient states he has macular degeneration in the right eye. Was seen at his ophthalmology office earlier this week and found to have elevated pressures in the left eye for which she has now been started on drops. Reports that he is under extraordinary amount of stress as his about 2 years ago and [place] Also reports a dog that is near . At time of the ER evaluation he is symptom-free. NIHSS of 0. Review of Systems Constitutional: denies: Fever, Chills Eyes: denies: Loss of vision Ears: reports: Reviewed and negative Nose: reports: Reviewed and negative Cardiac: reports: Reviewed and negative Respiratory: reports: Reviewed and negative GI: reports: Reviewed and negative : reports: Reviewed and negative Skin: reports: Reviewed and negative Musculoskeletal: reports: Reviewed and negative Neurologic: reports: Numbness. denies: Generalized weakness, Difficulty speaking, Syncope, Seizure, Confused, Headache, Head injury, LOC PD PAST MEDICAL HISTORY - Past Medical History Past Medical History: Yes Cardiovascular: Hypertension Respiratory: None Neuro: None Endocrine/Autoimmune: HyPOthyroidism, Other GI: None : None HEENT: None Psych: Depression Musculoskeletal: Osteoarthritis Derm: Other - Past Surgical History Past Surgical History: Yes General: Colonoscopy Ortho: Hip replacement HEENT: Tonsil/Adenoidectomy Derm: Skin cancer surgery - Present Medications Home Medications: Ambulatory Orders Medication Instructions Recorded Confirmed Testosterone 5 gm TD ONCE 10/02/16 05/24/23 Hydrocortisone [Cortef] 20 mg PO DAILYWM tablet 12/29/16 05/24/23 Levothyroxine [Synthroid] 125 mcg PO QDAC 12/15/20 05/24/23 - Allergies Allergies/Adverse Reactions: Allergies Allergy/AdvReac Type Severity Reaction Status Date / Time No Known Drug Allergies Allergy Verified 07/21/22 11:49 - Social History Does the pt smoke?: No Smoking Status: Never smoker Does the pt drink ETOH?: Yes Does the pt have substance abuse?: No - Immunizations Immunizations are current?: Yes - POLST Patient has POLST: No PD ED PE EXPANDED - General General: Alert, No acute distress - HEENT HEENT: Atraumatic, PERRL, EOMI, Moist mucous membranes - Neck Neck: Supple w/out meningeal sx. No: Adenopathy - Cardiac Cardiac: Regular Rate, Radial strong equal, Pedal strong equal, Cap refill < 2 sec. No: Murmur Present - Respiratory Respiratory: Clear to ausultation jaye. No: Distress, Labored - Neuro Neuro: Alert and Oriented X 3, CNII-XII intact, Cerebellar nl, Normal gait, Normal finger nose, Normal speech - GCS Eye Opening: Spontaneous Motor: Obeys Commands Verbal: Oriented Total: 15 Results - Vitals Vitals: Vital Signs - 24 hr 05/24/23 05/24/23 10:21 13:54 Temperature 36.6 C Heart Rate 65 50 L Respiratory 16 16 Rate Blood Pressure 146/73 H 145/74 H O2 Saturation 98 98 Oxygen O2 Source Room air - EKG (time done) 1150 EKG releavant findings:: EKG personally interpreted by author of this note. Relevant findings are: Rate: Rate (enter#) (53) Rhythm: NSR [place]: Other Intervals: Prolonged [place] QRS: Normal Ischemia: Normal ST segments Compare to prior EKG: Old EKG unavailable Computer interpretation: Agree with computer - Labs Labs: Laboratory Tests 05/24/23 05/24/23 05/24/23 11:43 12:17 12:17 WBC 6.4 RBC 4.25 L Hgb 13.8 L Hct 40.5 L MCV 95.3 H MCH 32.5 H MCHC 34.1 RDW 12.8 Plt Count 182 MPV 9.4 Neut # (Auto) 3.7 Lymph # (Auto) 2.2 [place] # (Auto) 0.3 Eos # (Auto) 0.1 Baso # (Auto) 0.1 Absolute Nucleated RBC 0.00 Nucleated RBC % 0.0 PT 11.6 INR 1.1 Sodium 141 Potassium 4.0 Chloride 107 Carbon Dioxide 27 Anion Gap 7.0 BUN 17 Creatinine 1.0 Estimated GFR (MDRD) 72 L Glucose 85 Calcium 8.9 Total Bilirubin 0.5 AST 21 ALT 17 Alkaline Phosphatase 56 Troponin I High Sens 10.4 Total Protein 6.1 L Albumin 4.0 Globulin 2.1 Albumin/Globulin Ratio 1.9 Lipase 37 TSH Free T4 Direct 05/24/23 12:17 WBC RBC Hgb Hct MCV MCH MCHC RDW Plt Count MPV Neut # (Auto) Lymph # (Auto) [place] # (Auto) Eos # (Auto) Baso # (Auto) Absolute Nucleated RBC Nucleated RBC % PT INR Sodium Potassium Chloride Carbon Dioxide Anion Gap BUN Creatinine Estimated GFR (MDRD) Glucose Calcium Total Bilirubin AST ALT Alkaline Phosphatase Troponin I High Sens Total Protein Albumin Globulin Albumin/Globulin Ratio Lipase TSH 0.07 L Free T4 Direct 1.07 - Rads (name of study) cxr Relevant Findings:: Final report received (No acute cardiopulmonary process) CT angio head/neck Relevant Findings:: Final report received (No CT evidence of acute intracranial abnormalities. No area of abnormal intercranial enhancement. No high-grade stenosis or occlusion in the intracranial circulation. No aneurysms. No stenosis or occlusions in the neck arteries. No aneurysm.) CT head Relevant Findings:: Final report received (No CT evidence of acute intracranial abnormalities.) PD Medical Decision Making - ED course Complexity details: reviewed results, re-evaluated patient, d/w patient ED course: 82-year-old male presents to the emergency department for evaluation of what he thought could be strokelike symptoms this morning. He had let his dog out and when he returned to his bedroom he felt that the right side of his face was numb. He had a sensation of blackness moving up his head and neck though he denies any loss of vision. He looked in the mirror and states that he had no slurred speech or facial droop. His motor movements were normal. The symptoms lasted perhaps less than a minute and he return to bed. When he woke up later he felt that it was perhaps something that he needed to have evaluated though his symptoms have fully resolved. On presentation the emergency department he is alert and well-appearing. Negative fast. NIHSS was 0. We did obtain CBC, electrolytes and a TSH. Per my interpretation no acute abnormalities were noted. His TSH is elevated but the corrected T4 is normal. He is on levothyroxine. And initial twelve-lead EKG showed a first-degree AV block with a rate in the 50s. Nursing staff alerted me to an ECG pause on the monitor at 1235. They felt he had a long sinus pause. In evaluation of this rhythm it appears to be a PVC that is conducted early with a pause following that but the rest of the rhythm is sinus. Patient's troponin has been negative. He has been free of chest pain or shortness of air. Subsequent CT angios of the head and neck were completed which did not show any acute intracranial findings nor any findings to suggest aneurysm occlusion or stenosis. I reevaluated the patient at the bedside. We discussed that his symptoms could have been consistent with a TIA. He is advised to have an MRI completed as an outpatient. He will continue to take the daily aspirin he is already on. I did discuss with him the first-degree EKG AV block as well as the PVCs he is advised to have prompt follow-up with a bush and vine fruit crop farmer to determine if the heart rhythm could have been contributing to this a.m. symptoms. Will follow closely with Dr. Barnett. At this point he is feeling well and desires to be discharged home. The usual emergent return precautions were discussed for worsening symptoms. Departure - Departure Disposition: 01 Home, Self Care Clinical Impression: 1st degree AV block, Right facial numbness Condition: Stable Record reviewed to determine appropriate education?: Yes Follow-Up: Oj Barnett MD [Primary Care Provider] - Comments: You are seen today in the emergency department for evaluation of sensation this a.m. where he felt that perhaps her face was numb and there was a blackness moving up your neck and head. However when you looked in the mirror and did your own testing at home you had normal movements. I am presentation here to the emergency department your neurological and cerebellar exam are entirely normal. We did obtain labs including CBC, blood chemistry and thyroid testing. This was all essentially normal. Your TSH is abnormal but your corrected T4 is normal which indicates your levothyroxine is working. Your initial twelve-lead EKG showed a first-degree AV block. It was sinus rhythm and not an abnormal rhythm such as atrial fibrillation. However it is important that you follow very closely with your primary doctor as I believe he would benefit from referral to a bush and vine fruit crop farmer for evaluation of your heart rate that is in the 50s. This could be contributing to some of your symptoms and may need further evaluation and monitoring. If at any point you have a return of neurologic symptoms such as facial numbness, slurred speech facial droop or arm or leg weakness and please return to the ER. Return sooner if you develop any chest pain, have shortness of air, sensation of palpitations or any fainting episodes. Forms: PCP List NIHSS - Time Time: 11:30 - Level of Consciousness Level of consciousness: (0) Alert, Keenly responsive LOC Questions: (0) Answers both Q's correct LOC Commands: (0) Performs both correctly - Gaze Best Gaze: (0) Normal - Visual Visual: (0) No loss - Facial Palsy Facial Palsy: (0) Normal, symmetrical movement - Motor Arms (both separate) Motor Arm (right): (0) No drift Motor Arm (left): (0) No drift - Motor Legs (both separate) Motor Leg (right): (0) No drift Motor Leg (left): (0) No drift - Limb Ataxia Limb Ataxia: (0) Absent - Sensory Sensory: (0) Normal - Best Language Best Language: (0) No aphasia - Dysarthria Dysarthria: (0) Normal - Extinction and Inattention (formally neg Extinction and inattention: (0) No abnormality - Total Score/Results Total Score/Result: 0
--- NOTE | 2023-05-24 11:53 | XRAY Report ---
PROCEDURE: Chest 1 View X-Ray INDICATIONS: Chest Pain TECHNIQUE: One view of the chest was acquired. COMPARISON: None. FINDINGS: Surgical changes and devices: None. Lungs and pleura: No pleural effusions or pneumothorax. Lungs are clear. Mediastinum: Mildly tortuous thoracic aorta is seen. Heart size is enlarged. Bones and chest wall: No suspicious bony lesions. Overlying soft tissues appear unremarkable. IMPRESSION: No acute cardiopulmonary process. Reviewed by: Marcos Draper MD on 05/24/2023 11:52 AM PDT Approved by: Marcos Draper MD on 05/24/2023 11:52 AM PDT Station ID: [id number]
[2023-05-24 12:00] LABS: BASOPHILS # (AUTO) 0.1 10^3/uL (0.0-0.1); BASOPHILS % (AUTO) 0.8 %; EOSINOPHILS # (AUTO) 0.1 10^3/uL (0.0-0.7); EOSINOPHILS % (AUTO) 1.7 %; HCT - HEMATOCRIT 40.5 % (42.0-52.0); HGB - HEMOGLOBIN 13.8 g/dL (14.0-18.0); LYMPHOCYTES # (AUTO) 2.2 10^3/uL (1.5-3.5); LYMPHOCYTES % (AUTO) 33.8 %; MEAN CORPUSCULAR HEMOGLOBIN 32.5 pg (27.0-31.0); MEAN CORPUSCULAR HGB CONC 34.1 g/dL (32.0-36.0); MEAN CORPUSCULAR VOLUME 95.3 fL (80.0-94.0); MEAN PLATELET VOLUME 9.4 fL (7.4-11.4); MONOCYTES # (AUTO) 0.3 10^3/uL (0.0-1.0); MONOCYTES % (AUTO) 5.2 %; NEUTROPHILS # (AUTO) 3.7 10^3/uL (1.5-6.6); NEUTROPHILS % (AUTO) 58.2 %; PLT - PLATELET COUNT 182 10^3/uL (130-450); RED BLOOD COUNT 4.25 10^6/uL (4.70-6.10); RED CELL DISTRIBUTION WIDTH 12.8 % (12.0-15.0); WHITE BLOOD COUNT 6.4 x10^3/uL (4.8-10.8)
[2023-05-24 12:38] LABS: INR 1.1 (0.8-1.2); PT - PROTHROMBIN TIME 11.6 secs (9.9-12.6)
[2023-05-24 12:41] LABS: TROPONIN I HIGH SENSITIVITY 10.4 ng/L (2.3-19.7)
[2023-05-24 12:55] LABS: ALBUMIN/GLOBULIN RATIO 1.9 (1.0-2.2); BILIRUBIN,TOTAL 0.5 mg/dL (0.2-1.0); CALCIUM 8.9 mg/dL (8.5-10.3); TOTAL PROTEIN 6.1 g/dL (6.4-8.9)
[2023-05-24 14:09] LABS: THYROID STIMULATING HORMONE 0.07 uIU/mL (0.34-5.60)
--- NOTE | 2023-05-24 14:10 | CT Report ---
PROCEDURE: HEAD WO INDICATIONS: facial numbness; vision loss TECHNIQUE: Noncontrast 4.5 mm thick angled axial sections acquired from the foramen magnum to the vertex. For r adiation dose reduction, the following was used: automated exposure control, adjustment of mA and/or kV according to patient size. COMPARISON: 12/15/2020 FINDINGS: Image quality: Excellent. CSF spaces: Basal cisterns are patent. No extra-axial fluid collections. The ventricles are symmet denisse in size and shape. Brain: No intracranial bleeds or masses. There is cerebral volume loss for age, with resultant vent ricular and sulcal prominence. There are periventricular and deep white matter chronic small vessel ischemic changes. Benign-appearing calcifications are noted in bilateral basal ganglia. There is int racranial internal carotid artery atherosclerosis. Skull and face: Calvarium and visualized facial bones appear intact, without suspicious lesions. Sinuses: Visualized sinuses and mastoids are clear. IMPRESSION: 1. No CT evidence of acute intracranial abnormalities. 2. Age-related volume loss and mild white matter chronic small vessel ischemic changes not significan tly changed from prior study. Reviewed by: Marcos Draper MD on 05/24/2023 2:09 PM PDT Approved by: Marcos Draper MD on 05/24/2023 2:09 PM PDT Station ID: [id number]
--- NOTE | 2023-05-24 14:19 | CT Report ---
PROCEDURE: CT Angio Head/Neck INDICATIONS: right facial numbness; vision loss TECHNIQUE: After the administration of intravenous contrast, 1 mm thick sections acquired from the aortic arch t hrough the [employer] of Smart. 3-dimensional xmlrsjg-okoggmnii-hlyqeifvqs (MIP) and/or volume renderin g reformats were acquired of the central intracranial vasculature and neck separately. For radiation dose reduction, the following was used: automated exposure control, adjustment of mA and/or kV acco rding to patient size. COMPARISON: CT head dated 05/24/2023, 12/15/2020. FINDINGS: Image quality: Diagnostic. HEAD CT: CSF Spaces: Basal cisterns are patent. No extra-axial fluid collections. Ventricles are normal in size and shape. Brain: The brain is within normal limits for age and scanning technique. No area of abnormal intrac ranial enhancement is noted. Skull and face: Calvarium and visualized facial bones appear intact, without suspicious lesions. Sinuses: Visualized sinuses and mastoids are clear. HEAD CT ANGIOGRAPHY: Anterior circulation: Intracranial internal carotid arteries are normal in size and flow. The flow within the paired anterior cerebral arteries is normal and symmetric. The flow within the middle cer ebral arteries is normal and symmetric. The anterior communicating artery is seen. No aneurysms are seen. Posterior circulation: Visualized portions of the vertebral arteries demonstrate normal caliber, and join to form a normal appearing basilar artery. Flow within the posterior cerebral arteries is norm al and symmetric. No aneurysms are seen. NECK CT ANGIOGRAPHY: Carotid system: The great vessels demonstrate a conventional anatomy as they arise from the aortic a rch. The origins of the common carotid arteries appear patent. The common carotid arteries demonstr ate normal caliber and courses. The bifurcation regions are both widely patent. The internal caroti d arteries demonstrate normal calibers and courses. Posterior circulation: The origins of the vertebral arteries both appear widely patent. The more ching perior extracranial portions of both vertebral arteries also demonstrate normal courses and calibers. They join to form a normal appearing basilar artery. Soft tissues: Visualized neck soft tissues demonstrate no suspicious abnormalities. Bones: No suspicious bony lesions. Visualized cervical spine appears normally aligned. IMPRESSION: 1. No CT evidence of acute intracranial abnormalities. No area of abnormal intracranial enhancement. 2. No high-grade stenosis or occlusion in the intracranial circulation. No aneurysm is seen. 3. No high-grade stenosis or occlusion is seen in the lateral neck arteries. No aneurysm. The estimate of stenosis included in the report of the imaging study was calculated using the NASCET method Reviewed by: Marcos Draper MD on 05/24/2023 2:18 PM PDT Approved by: Marcos Draper MD on 05/24/2023 2:18 PM PDT Station ID: [id number]
[2023-05-24] MEDS: IOVERSOL 320 100 ML VIAL IVP ONE ×2 (14:33→14:35)
[2023-05-24] MEDS ORDERED: iohexoL-300 100 ML VIAL IVP ONE (14:35)
[2023-05-24 14:54] VITALS: BP 155/80; O2SAT 99
== END 2023-05-24 14:59 | disposition home or self-care (01) ==
LOC: ED 10:15
DX: I44.0 Atrioventricular block, first degree (principal); R20.0 Anesthesia of skin; I10 Essential (primary) hypertension
CPT/HCPCS: 36415; 70450; 70496; 70498; 71045; 80053; 83690; 84439; 84443; 84484; 85025; 85610; 93005; 99284; Q9967

== ENCOUNTER 2023-07-07 10:23 | Emergency (ER) | payer MEDICARE ==
[2023-07-07] MEDS ORDERED: SODIUM CHLORIDE 0.9% 1,000 ML IV STA ×3 (10:32→11:40)
[2023-07-07 10:45] LABS: BASOPHILS # (AUTO) 0.1 10^3/uL (0.0-0.1); BASOPHILS % (AUTO) 0.7 %; EOSINOPHILS % (AUTO) 0.1 %; HCT - HEMATOCRIT 35.3 % (42.0-52.0); HGB - HEMOGLOBIN 12.3 g/dL (14.0-18.0); LYMPHOCYTES # (AUTO) 2.6 10^3/uL (1.5-3.5); MEAN CORPUSCULAR HEMOGLOBIN 32.5 pg (27.0-31.0); MEAN CORPUSCULAR HGB CONC 34.8 g/dL (32.0-36.0); MEAN CORPUSCULAR VOLUME 93.4 fL (80.0-94.0); MEAN PLATELET VOLUME 8.8 fL (7.4-11.4); MONOCYTES # (AUTO) 0.8 10^3/uL (0.0-1.0); MONOCYTES % (AUTO) 9.5 %; NEUTROPHILS # (AUTO) 5.1 10^3/uL (1.5-6.6); NEUTROPHILS % (AUTO) 59.5 %; PLT - PLATELET COUNT 142 10^3/uL (130-450); RED BLOOD COUNT 3.78 10^6/uL (4.70-6.10); RED CELL DISTRIBUTION WIDTH 13.4 % (12.0-15.0); WHITE BLOOD COUNT 8.5 x10^3/uL (4.8-10.8)
[2023-07-07 10:56] LABS: ALBUMIN 3.3 g/dL (3.2-5.5); ALBUMIN/GLOBULIN RATIO 1.7 (1.0-2.2); BILIRUBIN,TOTAL 0.9 mg/dL (0.2-1.0); CALCIUM 7.4 mg/dL (8.5-10.3); CREATININE 2.1 mg/dL (0.6-1.3); LACTIC ACID, VENOUS 2.1 mmol/L (0.5-2.2); POTASSIUM 3.6 mmol/L (3.5-4.5); TOTAL PROTEIN 5.2 g/dL (6.4-8.9)
[2023-07-07] MEDS ORDERED: HYDROCORTISONE SUCCINATE 100 MG/2 ML VIAL IVP STA (11:33)
[2023-07-07] MEDS ORDERED: NOREPINEPHRINE/0.9 % NS 8 MG/250 ML BAG IV ONE (11:36)
--- NOTE | 2023-07-07 11:43 | ED Physician Documentation ---
PD HPI ALTERED MENTAL STATUS - Stated complaint Stated Complaint: ALOC - Chief complaint Chief Complaint: Neuro - History obtained from History obtained from: EMS - Additional information Additional information: This is an 82-year-old gentleman who is . Reportedly lives alone. He has a history of hypertension, hypothyroid, depression, osteoarthritis, melanoma, adrenal insufficiency on hydrocortisone and pituitary tumor. All of the history is from EMS, reportedly was not last known normal yesterday and found today by a neighbor this morning basically comatose with hypoglycemia at 46. Blood sugar improved on arrival after D10 but hypotensive and still comatose. PD PAST MEDICAL HISTORY - Past Medical History Cardiovascular: Hypertension Respiratory: None Neuro: None Endocrine/Autoimmune: HyPOthyroidism, Other GI: None : None HEENT: None Psych: Depression Musculoskeletal: Osteoarthritis Derm: Other - Past Surgical History Past Surgical History: Yes General: Colonoscopy Ortho: Hip replacement HEENT: Tonsil/Adenoidectomy Derm: Skin cancer surgery - Present Medications Home Medications: Ambulatory Orders Medication Instructions Recorded Confirmed Testosterone 5 gm TD ONCE 10/02/16 07/07/23 Hydrocortisone [Cortef] 20 mg PO DAILYWM tablet 12/29/16 07/07/23 Levothyroxine [Synthroid] 125 mcg PO QDAC 12/15/20 07/07/23 - Allergies Allergies/Adverse Reactions: Allergies Allergy/AdvReac Type Severity Reaction Status Date / Time No Known Drug Allergies Allergy Verified 07/21/22 11:49 - Social History Does the pt smoke?: No Smoking Status: Never smoker Does the pt drink ETOH?: Yes Does the pt have substance abuse?: No - Immunizations Immunizations are current?: Yes - POLST Patient has POLST: No PD ED PE NORMAL - Vitals Vital signs reviewed: Yes - General General: Other (He responds minimally to painful stimulus. He is mottled and ill-appearing, hypotensive) - HEENT HEENT: Other (Large but reactive pupils) - Cardiac Cardiac: RRR, No murmur - Respiratory Respiratory: No respiratory distress, Clear bilaterally - Abdomen Abdomen: Other (Possibly slightly firm and distended but not tender, but limited by mental status.) - Extremities Extremities: Other (Peripherally mottled with poor pulses) - Neuro Eye Opening: Spontaneous Motor: Localizes to Pain Verbal: None GCS Score: 10 Results - Vitals Vitals: Vital Signs - 24 hr 07/07/23 07/07/23 07/07/23 10:29 10:35 11:00 Temperature 36.0 C L Heart Rate 76 70 Respiratory 27 H 32 H Rate Blood Pressure 64/38 L 110/94 H 64/38 L O2 Saturation 85 L 70 L If not protocol 4 : Oxygen Flow, liters/minute 07/07/23 07/07/23 07/07/23 11:04 11:05 11:37 Temperature Heart Rate 75 73 73 Respiratory 29 H 32 H 26 H Rate Blood Pressure 110/94 H 59/39 L 64/45 L O2 Saturation 81 L 100 74 L If not protocol 15 15 15 : Oxygen Flow, liters/minute 07/07/23 07/07/23 07/07/23 11:43 12:00 12:30 Temperature Heart Rate 77 74 64 Respiratory 26 H 16 16 Rate Blood Pressure 153/127 H 82/66 L 65/47 L O2 Saturation 92 99 95 If not protocol 15 15 : Oxygen Flow, liters/minute 07/07/23 07/07/23 07/07/23 13:00 13:40 14:00 Temperature 35.8 C L Heart Rate 69 71 68 Respiratory 16 16 16 Rate Blood Pressure 79/57 L 97/63 93/63 O2 Saturation 100 94 96 If not protocol : Oxygen Flow, liters/minute 07/07/23 07/07/23 07/07/23 14:30 15:00 15:30 Temperature Heart Rate 68 67 65 Respiratory 16 16 16 Rate Blood Pressure 89/63 L 91/64 87/61 L O2 Saturation 100 98 99 If not protocol : Oxygen Flow, liters/minute 07/07/23 07/07/23 07/07/23 15:37 16:00 16:30 Temperature 36.4 C L Heart Rate 68 62 62 Respiratory 16 16 Rate Blood Pressure 92/65 97/64 O2 Saturation 99 100 If not protocol : Oxygen Flow, liters/minute 07/07/23 07/07/23 07/07/23 17:00 17:30 18:00 Temperature 36.5 C Heart Rate 67 66 67 Respiratory 16 16 16 Rate Blood Pressure 122/67 118/68 122/71 O2 Saturation 100 100 98 If not protocol : Oxygen Flow, liters/minute 07/07/23 07/07/23 18:30 18:35 Temperature Heart Rate 66 64 Respiratory 16 Rate Blood Pressure 127/69 O2 Saturation 98 If not protocol : Oxygen Flow, liters/minute Oxygen O2 Source Mechanical ventilator - EKG (time done) 1139 EKG releavant findings:: EKG personally interpreted by author of this note. Relevant findings are: Rate: Rate (enter#) (74) Rhythm: NSR [place]: Normal Intervals: Prolonged VA, RBBB QRS: Normal Ischemia: Non specific changes - Labs Labs: Laboratory Tests 07/07/23 07/07/23 07/07/23 10:37 10:37 10:37 WBC 8.5 RBC 3.78 L Hgb 12.3 L Hct 35.3 L MCV 93.4 MCH 32.5 H MCHC 34.8 RDW 13.4 Plt Count 142 MPV 8.8 Neut # (Auto) 5.1 Lymph # (Auto) 2.6 [place] # (Auto) 0.8 Eos # (Auto) 0.0 Baso # (Auto) 0.1 Absolute Nucleated RBC 0.00 Nucleated RBC % 0.0 PT INR Bld Gas Analysis Time Sample Site ABG pH ABG pCO2 ABG pO2 ABG HCO3 ABG Total CO2 ABG O2 Saturation ABG Base Excess Niranjan Test VBG pH VBG pCO2 VBG pO2 VBG HCO3 VBG Total CO2 VBG O2 Saturation VBG Base Excess Respiration Rate O2 Delivery Device Vent Mode FiO2 Tidal Volume PEEP Pressure Support Vent Sodium 130 L Potassium 3.6 Chloride 100 L Carbon Dioxide 20 L Anion Gap 10.0 BUN 37 H Creatinine 2.1 H Estimated GFR (MDRD) 31 L Glucose 151 H Lactic Acid 2.1 Calcium 7.4 L Phosphorus Magnesium Total Bilirubin 0.9 AST 91 H ALT 34 Alkaline Phosphatase 46 Troponin I High Sens Total Protein 5.2 L Albumin 3.3 Globulin 1.9 L Albumin/Globulin Ratio 1.7 Lipase 26 Urine Color Urine Clarity Urine pH Ur Specific [place] Urine Protein Urine Glucose (UA) Urine Ketones Urine Occult Blood Urine Nitrite Urine Bilirubin Urine Urobilinogen Ur Leukocyte Esterase Urine RBC Urine WBC Ur Squamous Epith Cells Urine Bacteria Urine Mucus Urine Culture Comments 07/07/23 07/07/23 07/07/23 11:06 11:30 11:30 WBC RBC Hgb Hct MCV MCH MCHC RDW Plt Count MPV Neut # (Auto) Lymph # (Auto) [place] # (Auto) Eos # (Auto) Baso # (Auto) Absolute Nucleated RBC Nucleated RBC % PT 19.9 H INR 1.9 H Bld Gas Analysis Time Sample Site ABG pH ABG pCO2 ABG pO2 ABG HCO3 ABG Total CO2 ABG O2 Saturation ABG Base Excess Niranjan Test VBG pH 7.265 L VBG pCO2 34.5 L VBG pO2 26.1 VBG HCO3 15.3 L VBG Total CO2 16.4 L VBG O2 Saturation 48.9 L VBG Base Excess -10.7 L Respiration Rate O2 Delivery Device Vent Mode FiO2 Tidal Volume PEEP Pressure Support Vent Sodium Potassium Chloride Carbon Dioxide Anion Gap BUN Creatinine Estimated GFR (MDRD) Glucose Lactic Acid Calcium Phosphorus Magnesium Total Bilirubin AST ALT Alkaline Phosphatase Troponin I High Sens Total Protein Albumin Globulin Albumin/Globulin Ratio Lipase Urine Color YELLOW Urine Clarity CLEAR Urine pH 6.0 Ur Specific [place] 1.015 Urine Protein 30 H Urine Glucose (UA) NEGATIVE Urine Ketones 15 H Urine Occult Blood NEGATIVE Urine Nitrite NEGATIVE Urine Bilirubin NEGATIVE Urine Urobilinogen 0.2 (NORMAL) Ur Leukocyte Esterase NEGATIVE Urine RBC 0-5 Urine WBC 0-3 Ur Squamous Epith Cells NONE SEEN Urine Bacteria None Seen Urine Mucus Few Strands Urine Culture Comments NOT INDICATED 07/07/23 07/07/23 07/07/23 11:30 11:30 12:40 WBC RBC Hgb Hct MCV MCH MCHC RDW Plt Count MPV Neut # (Auto) Lymph # (Auto) [place] # (Auto) Eos # (Auto) Baso # (Auto) Absolute Nucleated RBC Nucleated RBC % PT INR Bld Gas Analysis Time 1257 Sample Site A-LINE ABG pH 7.24 L ABG pCO2 35 ABG pO2 104 H ABG HCO3 14.5 L ABG Total CO2 15.6 L ABG O2 Saturation 97 ABG Base Excess -11.9 L Niranjan Test NOT APPLICABLE VBG pH VBG pCO2 VBG pO2 VBG HCO3 VBG Total CO2 VBG O2 Saturation VBG Base Excess Respiration Rate 16 O2 Delivery Device Vent Mode SIMV FiO2 100.00 Tidal Volume 500 PEEP 5 Pressure Support Vent 18 Sodium Potassium Chloride Carbon Dioxide Anion Gap BUN Creatinine Estimated GFR (MDRD) Glucose Lactic Acid 1.9 Calcium Phosphorus 3.1 Magnesium 1.4 L Total Bilirubin AST ALT Alkaline Phosphatase Troponin I High Sens 2972.0 H* Total Protein Albumin Globulin Albumin/Globulin Ratio Lipase Urine Color Urine Clarity Urine pH Ur Specific [place] Urine Protein Urine Glucose (UA) Urine Ketones Urine Occult Blood Urine Nitrite Urine Bilirubin Urine Urobilinogen Ur Leukocyte Esterase Urine RBC Urine WBC Ur Squamous Epith Cells Urine Bacteria Urine Mucus Urine Culture Comments 07/07/23 07/07/23 07/07/23 13:47 16:08 16:08 WBC 10.0 RBC 3.76 L Hgb 12.3 L Hct 35.3 L MCV 93.9 MCH 32.7 H MCHC 34.8 RDW 13.6 Plt Count 147 MPV 9.3 Neut # (Auto) 7.8 H Lymph # (Auto) 1.5 [place] # (Auto) 0.6 Eos # (Auto) 0.0 Baso # (Auto) 0.1 Absolute Nucleated RBC 0.00 Nucleated RBC % 0.0 PT INR Bld Gas Analysis Time Sample Site ABG pH ABG pCO2 ABG pO2 ABG HCO3 ABG Total CO2 ABG O2 Saturation ABG Base Excess Niranjan Test VBG pH VBG pCO2 VBG pO2 VBG HCO3 VBG Total CO2 VBG O2 Saturation VBG Base Excess Respiration Rate O2 Delivery Device Vent Mode FiO2 Tidal Volume PEEP Pressure Support Vent Sodium 130 L Potassium 4.6 H Chloride 105 Carbon Dioxide 14 L Anion Gap 11.0 BUN 38 H Creatinine 1.7 H Estimated GFR (MDRD) 39 L Glucose 93 Lactic Acid Calcium 7.8 L Phosphorus Magnesium 2.3 Total Bilirubin AST ALT Alkaline Phosphatase Troponin I High Sens 2651.6 H* Total Protein Albumin Globulin Albumin/Globulin Ratio Lipase Urine Color Urine Clarity Urine pH Ur Specific [place] Urine Protein Urine Glucose (UA) Urine Ketones Urine Occult Blood Urine Nitrite Urine Bilirubin Urine Urobilinogen Ur Leukocyte Esterase Urine RBC Urine WBC Ur Squamous Epith Cells Urine Bacteria Urine Mucus Urine Culture Comments 07/07/23 17:55 WBC RBC Hgb Hct MCV MCH MCHC RDW Plt Count MPV Neut # (Auto) Lymph # (Auto) [place] # (Auto) Eos # (Auto) Baso # (Auto) Absolute Nucleated RBC Nucleated RBC % PT INR Bld Gas Analysis Time 1755 Sample Site RIGHT RADIAL ABG pH 7.24 L ABG pCO2 32 L ABG pO2 264 H* ABG HCO3 13.2 L ABG Total CO2 14.1 L ABG O2 Saturation 99 H ABG Base Excess -13.4 L Niranjan Test POSITIVE VBG pH VBG pCO2 VBG pO2 VBG HCO3 VBG Total CO2 VBG O2 Saturation VBG Base Excess Respiration Rate 16 O2 Delivery Device VENTILATOR Vent Mode FiO2 70.00 Tidal Volume 560 PEEP 5 Pressure Support Vent Sodium Potassium Chloride Carbon Dioxide Anion Gap BUN Creatinine Estimated GFR (MDRD) Glucose Lactic Acid Calcium Phosphorus Magnesium Total Bilirubin AST ALT Alkaline Phosphatase Troponin I High Sens Total Protein Albumin Globulin Albumin/Globulin Ratio Lipase Urine Color Urine Clarity Urine pH Ur Specific [place] Urine Protein Urine Glucose (UA) Urine Ketones Urine Occult Blood Urine Nitrite Urine Bilirubin Urine Urobilinogen Ur Leukocyte Esterase Urine RBC Urine WBC Ur Squamous Epith Cells Urine Bacteria Urine Mucus Urine Culture Comments - Rads (name of study) CT abdomen pelvis showing possible pancreatitis and/or cholecystitis not corroborated on labs. Small bilateral pleural effusions. Without contrast d Relevant Findings:: Final report received, EMP independent interpretation of test CT of the head without contrast demonstrating no acute intracranial pathology Relevant Findings:: Final report received, EMP independent interpretation of test Procedures - General procedure General procedure: Arterial line placement: Right wrist was prepped and draped and using real-time a sterile ultrasound guidance a radial artery catheter was inserted with good pulsatile blood flow and sutured in place. - Intubation - Major Provider: Emergency physician Medications: Ketamine (250mg IVP), Succinylcholine (200mg IVP) Blade: Glidescope Tube: Size-enter number (7.5), Cuffed Route: Oral Confirmation: Direct visualization Complications: No compications PD Medical Decision Making - ED course ED course: 82-year-old gentleman presents profoundly ill with hypotension and hypoglycemia. He was actually initially seen by my partner but she was dealing with multiple critical patients at shift change and I took over at shift change. Central line was placed and on my evaluation he was receiving his third liter of crystalloid and I started Levophed and also ordered bolus dose hydrocortisone. After that his blood pressure came up and he actually became somewhat more responsive, still waxing and waning but able to answer simple questions. I discussed by phone with his [id number] available at [phone]. She relays that he is full code and would want aggressive measures unless he were in a permanent vegetative state. She relays that the patient's brother, Anjum Arriola is actually his POA, he is available at [phone] but is not available right now as he is at a football game and very hard of hearing. Initial lab work showed a CBC showing stable anemia, otherwise unremarkable. Venous blood gas with some acidosis with a pH of 7.26 and CO2 of 34.5 and chemistry is most notable for acute kidney injury, it looks like his baseline creatinine is right around 1.0 and today it is 2.1. His lactate is normal at 2.1. He did still need intubation and periintubation we got his pressure up with a Levophed drip. Periintubation he did require 2 doses of push dose epinephrine for profound hypotension and on bedside echo at that time he had severe global hypokinesis. An A-line was placed. He remained hypotensive and fixed dose vasopressin was added to his Levophed which at that point was at 30 mcg/min. As his blood pressure came up he did need some sedation and a fentanyl drip was ordered. His ABG drawn off the A-line was actually not bad with a pH of 7.24, CO2 35, O2 of 104. He does have a significant A-A gradient as he was on 100% FiO2 at that time via the ventilator. His troponin was quite elevated at 2972, I will repeat this and order rectal aspirin. I am holding off on anticoagulation until CT of the head is back. He remained hypotensive on 2 pressors but his blood pressure came up pretty good after the administration of an amp of calcium chloride. His magnesium was also low which I will replete IV. We will trend the troponins. He was excepted by Dr. Wilkinson to [facility] ICU at 2:23 PM pending bed availability which is not going to be immediate. Once he went over for CT and it became apparent that there was no intracranial bleed I also ordered a heparin drip. Subsequently [facility] called us back and they are now excepting the patient to [facility]. Prior to transport we were able to start to wean the pressors a bit from the maximum dose of the Levophed. Repeat labs demonstrated stable CBC, BMP showing worsening of bicarb but improvement of renal function, persistently low calcium which was again treated with an amp of calcium chloride. - Critical Care Time(min): 95 Time Includes: Direct patient care, Review records, Reassess patient, Document care, Coordinate care, Medical consult, Family consult for tx dec Data interpretation: Labs, Pulse ox, ABG, CXR Procedures included in critical care time: Peripheral IV Procedures excluded from critical care time: Central IV, Arterial cannulation, Intubation, EKG Departure - Departure Disposition: 02 Transfer Acute Care Hosp Clinical Impression: Shock, NSTEMI (non-ST elevated myocardial infarction), KYLEE (acute kidney injury), Hypoglycemia, [place]isonian crisis Coma Qualifiers: Coma depth: unspecified coma depth Qualified Code(s): R40.20 - Unspecified coma Condition: Critical Forms: PCP List Discharge Date/Time: 07/07/23 19:28
[2023-07-07 11:48] LABS: VBG PH 7.265 (7.31-7.41)
[2023-07-07 11:49] LABS: VBG BASE EXCESS -10.7 mmol/L (-2 - +2); VBG HCO3 15.3 mmol/L (23-28); VBG OXYGEN SATURATION 48.9 % (60-80); VBG PCO2 34.5 mmHg (41-51); VBG PO2 26.1 mmHg (25-47); VBG TOTAL CO2 16.4 mmol/L (24-29)
[2023-07-07] MEDS ORDERED: KETAMINE 500 MG/10 ML VIAL IVP STA (11:49)
[2023-07-07] MEDS ORDERED: SUCCINYLCHOLINE 200 MG/10 ML VIAL IVP STA (11:50)
--- NOTE | 2023-07-07 11:50 | XRAY Report ---
PROCEDURE: Chest for Line Placement INDICATIONS: Sepsis TECHNIQUE: One view of the chest was acquired. COMPARISON: None. FINDINGS: Surgical changes and devices: Right IJ central venous catheter tip projects over the low SVC. Lungs and pleura: Perihilar airspace opacities. No pneumothorax. Mediastinum: Mediastinal contours appear normal. Heart size is normal. Bones and chest wall: No suspicious bony lesions. Overlying soft tissues appear unremarkable. IMPRESSION: Right IJ central venous catheter tip projects over the low SVC. No pneumothorax. Perihilar airspace opacities, possibly pulmonary edema. Reviewed by: Surendra Lewis on 07/07/2023 11:49 AM PDT Approved by: Surendra Lewis on 07/07/2023 11:49 AM PDT Station ID: [id number]
[2023-07-07] MEDS ORDERED: NOREPINEPHRINE/0.9 % NS 8 MG/250 ML BAG IV SCH ×2 (12:00→16:00)
[2023-07-07 12:02] LABS: INR 1.9 (0.8-1.2); MAGNESIUM 1.4 mg/dL (1.7-2.3); PHOSPHORUS 3.1 mg/dL (2.5-5.0); PT - PROTHROMBIN TIME 19.9 secs (9.9-12.6)
[2023-07-07 12:10] LABS: BILIRUBIN,URINE NEGATIVE (NEGATIVE); GLUCOSE, URINE (UA) NEGATIVE (NEGATIVE); KETONES,URINE (UA) 15 mg/dL (NEGATIVE); LEUKOCYTE ESTERASE, URINE NEGATIVE (NEGATIVE); NITRITE,URINE NEGATIVE (NEGATIVE); OCCULT BLOOD,URINE NEGATIVE (NEGATIVE); PROTEIN,URINE 30 mg/dL (NEGATIVE); UROBILINOGEN,URINE 0.2 (NORMAL) E.U./dL (NORMAL)
[2023-07-07 12:17] LABS: BACTERIA,URINE None Seen /HPF (None Seen); CLARITY,URINE CLEAR (CLEAR); MUCUS,URINE Few Strands; RBC,URINE 0-5 /HPF (0-5); SQUAMOUS EPITHELIAL CELL,UR NONE SEEN (<= Few); WBC,URINE 0-3 /HPF (0-3)
[2023-07-07] MEDS ORDERED: VASOPRESSIN 20 UNIT in DEXTROSE 5% 99 ML IV STA ×2 (12:42→12:43)
[2023-07-07] MEDS ORDERED: fentaNYL 100 MCG/2 ML VIAL IVP STA (12:54)
[2023-07-07] MEDS ORDERED: fentaNYL 2,500 MCG in SODIUM CHLORIDE 0.9% 200 ML IV STA (12:54)
[2023-07-07 12:55] LABS: ABG HCO3 14.5 mmol/L (22.0-26.0); ABG PCO2 35 mmHg (34-45); ABG PH 7.24 (7.35-7.45); ABG PO2 104 mmHg (80-100)
[2023-07-07 12:56] LABS: ABG BASE EXCESS -11.9 mmol/L (-2.0-3.0); ABG MODE OF VENTILATION SIMV; ABG OXYGEN SATURATION 97 % (94-98); ABG RESPIRATORY RATE 16 b/min; ABG TCO2 15.6 MMOL/L (21.0-29.0)
[2023-07-07] MEDS ORDERED: CALCIUM CHLORIDE ABBOJECT 1000MG/10 ML SYRINGE IVP STA ×2 (13:11→16:44)
[2023-07-07] MEDS ORDERED: ASPIRIN 300 MG SUPP PR STA (13:29)
[2023-07-07] MEDS ORDERED: MAGNESIUM SULFATE 2 GRAM 2 GM/50 ML BAG IV ONE (13:31)
[2023-07-07] MEDS ORDERED: VASOPRESSIN 20 UNIT in DEXTROSE 5% 99 ML IV SCH (15:36)
--- NOTE | 2023-07-07 15:54 | CT Report ---
PROCEDURE: ABDOMEN/PELVIS WO INDICATIONS: Undifferentiated shock TECHNIQUE: A CT scan of the abdomen and pelvis was performed without the use of intravenous contrast. Images we re recorded and evaluated at appropriate window settings. Reformats: coronal and sagittal. For radiat ion dose reduction, the following was used: automated exposure control, adjustment of mA and/or kV ac cording to patient size. COMPARISON: None. FINDINGS: Image quality: Excellent. Lung bases and heart: Small bilateral pleural effusions with bibasilar atelectasis. Liver: No solid mass. Gallbladder and biliary tree: Moderate gallbladder wall thickening. Spleen: No splenomegaly. Pancreas: The ill-defined inflammatory changes near the head of pancreas with diffuse wall thickening of the adjacent duodenum. No organized fluid collection. Adrenals: No adrenal nodule. Kidneys and ureters: No hydronephrosis. No renal cystic lesion which requires follow up. No solid mas s. Bowel and peritoneum: No bowel distension. No pathologic free fluid. Lymph nodes: No central or retroperitoneal adenopathy. Vessels: No infrarenal aortic aneurysm. PELVIS Reproductive organs: Unremarkable. Bladder: Diffuse wall thickening however bladder is under distended. Free air within the bladder. Fol ey catheters present. Pelvic lymph nodes: No pelvic adenopathy by size criteria. Bones: Right hip prosthesis. Other: No significant ventral or inguinal hernia. IMPRESSION: 1.Inflammatory changes near the head of the pancreas is concerning for acute pancreatitis. Correlate with laboratory values. 2.Moderate wall thickening of the gallbladder, correlate with laboratory values and consider ultrasou nd. 3.No hydronephrosis or obstructing renal stone. 4.Wall thickening of the bladder is likely related to underdistention, correlate with UA. 5.Small bilateral pleural effusions. Reviewed by: Oj Avina MD on 07/07/2023 2:53 PM AKDT Approved by: Oj Avina MD on 07/07/2023 2:53 PM AKDT Station ID: [id number]
[2023-07-07] MEDS ORDERED: HEPARIN 25000UNITS/500ML (D5W) 25,000 UNIT/500 ML BAG IV SCH (16:00)
--- NOTE | 2023-07-07 16:10 | CT Report ---
PROCEDURE: HEAD WO INDICATIONS: ALOC TECHNIQUE: Noncontrast 4.5 mm thick angled axial sections acquired from the foramen magnum to the vertex. For r adiation dose reduction, the following was used: automated exposure control, adjustment of mA and/or kV according to patient size. COMPARISON: None. FINDINGS: Image quality: Excellent. CSF spaces: Basal cisterns are patent. No extra-axial fluid collections. Ventricles are normal in size and shape. Brain: No midline shift. No intracranial masses or hemorrhage. Crow-white matter interface is norm al. Skull and face: Calvarium and visualized facial bones are intact, without suspicious lesions. Sinuses: Visualized sinuses and mastoids are clear. IMPRESSION: No acute intracranial pathology. Reviewed by: Surendra Lewis on 07/07/2023 4:08 PM PDT Approved by: Surendra Lewis on 07/07/2023 4:08 PM PDT Station ID: [id number]
[2023-07-07 16:15] LABS: BASOPHILS # (AUTO) 0.1 10^3/uL (0.0-0.1); BASOPHILS % (AUTO) 0.7 %; HCT - HEMATOCRIT 35.3 % (42.0-52.0); HGB - HEMOGLOBIN 12.3 g/dL (14.0-18.0); LYMPHOCYTES # (AUTO) 1.5 10^3/uL (1.5-3.5); LYMPHOCYTES % (AUTO) 15.3 %; MEAN CORPUSCULAR HEMOGLOBIN 32.7 pg (27.0-31.0); MEAN CORPUSCULAR HGB CONC 34.8 g/dL (32.0-36.0); MEAN CORPUSCULAR VOLUME 93.9 fL (80.0-94.0); MEAN PLATELET VOLUME 9.3 fL (7.4-11.4); MONOCYTES # (AUTO) 0.6 10^3/uL (0.0-1.0); MONOCYTES % (AUTO) 5.9 %; NEUTROPHILS # (AUTO) 7.8 10^3/uL (1.5-6.6); NEUTROPHILS % (AUTO) 77.8 %; PLT - PLATELET COUNT 147 10^3/uL (130-450); RED BLOOD COUNT 3.76 10^6/uL (4.70-6.10); RED CELL DISTRIBUTION WIDTH 13.6 % (12.0-15.0)
[2023-07-07 16:29] LABS: MAGNESIUM 2.3 mg/dL (1.7-2.3)
[2023-07-07 16:40] LABS: CALCIUM 7.8 mg/dL (8.5-10.3); CREATININE 1.7 mg/dL (0.6-1.3); POTASSIUM 4.6 mmol/L (3.5-4.5)
[2023-07-07 18:03] LABS: ABG HCO3 13.2 mmol/L (22.0-26.0); ABG PCO2 32 mmHg (34-45); ABG PH 7.24 (7.35-7.45); ABG TCO2 14.1 MMOL/L (21.0-29.0)
[2023-07-07 18:04] LABS: ABG BASE EXCESS -13.4 mmol/L (-2.0-3.0); ABG OXYGEN SATURATION 99 % (94-98); ABG RESPIRATORY RATE 16 b/min; ALLEN TEST POSITIVE
[2023-07-07 18:06] LABS: ABG PO2 264 mmHg (80-100)
[2023-07-07 18:14] VITALS: O2SAT 98
[2023-07-07 18:39] VITALS: BP 127/69
== END 2023-07-07 19:28 | disposition short-term general hospital (02) ==
LOC: EDSEX → EDUNIT# → ED 10:23
DX: I21.4 Non-ST elevation (NSTEMI) myocardial infarction (principal); N17.9 Acute kidney failure, unspecified; R40.20 Unspecified coma; E16.2 Hypoglycemia, unspecified; R57.9 Shock, unspecified; I10 Essential (primary) hypertension; E03.9 Hypothyroidism, unspecified; Z79.899 Other long term (current) drug therapy
CPT/HCPCS: 31500; 36415; 36556; 36620; 70450; 74176; 80048; 80053; 81001; 82803; 83605; 83690; 83735; 84100; 84484; 85025; 85610; 87040; 87086; 93005; 94002; 96365; 96366; 96368; 96375; 96376; 99291; 99292; A9270; J0330; J3010